=== PATIENT | female | born 1990 | race Caucasian/White ===

== ENCOUNTER 2016-11-26 20:33 | Emergency (ER) | payer MEDICAID ==
[2016-11-26] MEDS ORDERED: DIAZEPAM 5 MG TABLET PO ONE (22:17)
--- NOTE | 2016-11-26 22:19 | ER Document Report ---
HPI - HPI Patient complains to provider of: Panic attack Pain Level: Denies Context: Patient is a 26-year-old female that comes emergency department for chief complaint of possible panic attack, she is with mom, mom states that patient suddenly began hyperventilating, shaking, and tearful, she was complaining of sensation of nausea, dizziness, and difficulty breathing. Patient states this past but she cannot seem to calm down. Patient is tearful and shaky. Mom states she was previously medicated for this but not now. She does have a history of panic disorder, anxiety, PTSD. - CARDIOVASCULAR Cardiovascular: DENIES: Chest pain - REPRODUCTIVE LMP: this month Past Medical History - General Information source: Patient, Parent - Social History Smoking Status: Never Smoker Chew tobacco use (# tins/day): No Frequency of alcohol use: Occasional Drug Abuse: None Lives with: Family Family History: Reviewed & Not Pertinent Renal/ Medical History: Denies: Hx Peritoneal Dialysis Musculoskeltal Medical History: Reports Hx Arthritis Psychiatric Medical History: Reports: Hx Anxiety, Hx Post Traumatic Stress Disorder Past Surgical History: Reports: Hx Oral Surgery - wisdom, Hx Orthopedic Surgery - left ankle, Hx Tonsillectomy - Immunizations Hx Diphtheria, Pertussis, Tetanus Vaccination: Yes Vertical Provider Document - CONSTITUTIONAL General Appearance: WD/WN. negative: No Apparent Distress - Patient was shaky and tearful - INFECTION CONTROL TRAVEL OUTSIDE OF THE [place] IN LAST 30 DAYS: Yes - JIMMY - HEENT HEENT: Atraumatic, Normal ENT Exam - Tears but otherwise normal ENT exam, Normocephalic - NECK Neck: Normal Inspection - RESPIRATORY Respiratory: Breath Sounds Normal, No Respiratory Distress - CARDIOVASCULAR Cardiovascular: Regular Rate, Regular Rhythm. negative: Tachycardia - GI/ABDOMEN Gastrointestinal: Abdomen Soft, Abdomen Non-Tender - BACK Back: Normal Inspection - MUSCULOSKELETAL/EXTREMETIES Musculoskeletal/Extremeties: MAEW, FROM, Non-Tender - NEURO Level of Consciousness: Awake, Alert, Appropriate - DERM Integumentary: Warm, Dry, No Rash Course - Re-evaluation Re-evalutation: Patient initially shaky and tearful. Asymptomatic on recheck. Slightly flat affect, she states she wants to go home. Denies SI or HI. Mom states that she is currently living with her, states she recently went through divorce, states that she is seeing a therapist, neither 1 of them express any concerns about her safety at home, patient will be provided with a small amount of medication as needed for panic attack, discussed follow-up and return precautions, patient and mother state understanding and agreement. Discharge - Discharge Clinical Impression: Anxiety, Panic attack Condition: Stable Disposition: HOME, SELF-CARE Instructions: Anxiety ([facility]) Additional Instructions: Symptoms are most consistent with panic attack, if needed take the prescribed medication, follow-up with her therapist, follow-up with primary care as well, return to the emergency department for any concerning symptoms. Prescriptions: Diazepam [Valium 5 mg Tablet] 1 - 2 tab PO TID #10 tablet
[2016-11-26 23:48] VITALS: BP 114/64
== END 2016-11-26 23:50 | disposition home or self-care (01) ==
LOC: ER 20:33
DX: F41.0 Panic disorder [episodic paroxysmal anxiety] (principal); R11.0 Nausea; R42 Dizziness and giddiness; R06.02 Shortness of breath
CPT/HCPCS: 99283; J3490

== ENCOUNTER 2017-11-17 13:25 | Emergency (ER) | payer MEDICAID ==
--- NOTE | 2017-11-17 14:38 | ER Document Report ---
ED General - General TRAVEL OUTSIDE OF THE U.[place]. IN LAST 30 DAYS: Yes - JIMMY <HALEY ENGLAND - Last Filed: 11/17/17 14:32> <CYNTHIA BUTT - Last Filed: 11/17/17 15:45> - General Chief Complaint: Anxiety Stated Complaint: PSYCH EVAL Time Seen by Provider: 11/17/17 13:40 Notes: Patient is here for evaluation of anxiety and panic attacks. She says that she has had daily panic attacks for many years. Currently under the care of [facility]. She says that she has tried many different medications and none of them seem to work. Says she got anxious and upset today when she was going walking the mall. She has PTSD and has multiple episodes of anxiety and panic attacks triggered by multiple factors. Prominent symptom she has is hyperventilation, which she is doing somewhat mildly at this time. (CYNTHIA BUTT) - Related Data Allergies/Adverse Reactions: iodine Allergy (Verified 11/26/16 20:50) Past Medical History - Social History Smoking Status: Unknown if Ever Smoked Family History: Reviewed & Not Pertinent Patient has suicidal ideation: No Patient has homicidal ideation: No Renal/ Medical History: Denies: Hx Peritoneal Dialysis Musculoskeletal Medical History: Reports Hx Arthritis Psychiatric Medical History: Reports: Hx Anxiety, Hx Post Traumatic Stress Disorder Past Surgical History: Reports: Hx Oral Surgery - wisdom, Hx Orthopedic Surgery - left ankle, Hx Tonsillectomy - Immunizations Hx Diphtheria, Pertussis, Tetanus Vaccination: Yes <HALEY ENGLAND - Last Filed: 11/17/17 14:32> - Social History Smoking Status: Unknown if Ever Smoked Family History: Reviewed & Not Pertinent Pulmonary Medical History: Reports: Hx Asthma Neurological Medical History: Denies: Hx Seizures Endocrine Medical History: Denies: Hx Diabetes Mellitus Type 1, Hx Diabetes Mellitus Type 2 Psychiatric Medical History: Reports: Hx Anxiety, Hx Post Traumatic Stress Disorder Past Surgical History: Denies: Hx Abdominal Surgery <CYNTHIA BUTT - Last Filed: 11/17/17 15:45> Review of Systems <HALEY ENGLAND - Last Filed: 11/17/17 14:32> <CYNTHIA BUTT - Last Filed: 11/17/17 15:45> - Review of Systems Notes: REVIEW OF SYSTEMS: CONSTITUTIONAL : Denies fever. Breathing somewhat rapidly. EENT: Denies eye, ear, nose or mouth or throat pain or other symptoms. CARDIOVASCULAR: Has diffuse chest pains. RESPIRATORY: Feels short of breath. GASTROINTESTINAL: Mild diffuse discomfort, but denies abdominal pain or nausea, vomiting, or diarrhea. GENITOURINARY: Denies difficulty or painful urinating, urinary frequency, blood in urine. MUSCULOSKELETAL: Denies back or neck pain. Denies joint pain or swelling. SKIN: Denies rash or skin lesions. NEUROLOGICAL: Denies LOC or altered mental status. Denies headache. Denies sensory loss or motor deficits. ALL OTHER SYSTEMS REVIEWED AND NEGATIVE. (CYNTHIA BUTT) Physical Exam <HALEY ENGLAND - Last Filed: 11/17/17 14:32> - Vital signs Interpretation: Normal, Other - Respiratory rate about 25 at bedside by me. <CYNTHIA BUTT - Last Filed: 11/17/17 15:45> - Vital signs Notes: PHYSICAL EXAMINATION: GENERAL: Well-appearing, in no acute distress. Anxious and breathing somewhat rapidly at about 25/min. HEAD: Atraumatic, normocephalic. EYES: Pupils equal round and reactive to light, extraocular movements intact. ENT: oropharynx clear without exudates. Moist mucous membranes. NECK: Normal range of motion, supple. LUNGS: Breath sounds clear and equal bilaterally. HEART: Regular rate and rhythm without murmurs. ABDOMEN: Soft, nontender. No guarding or rebound. No masses. BACK: No tenderness throughout entire back. EXTREMITIES: Normal range of motion without pain. NEUROLOGICAL: Normal speech, normal gait. Normal sensory, motor, and reflex exams. Awake, alert, and oriented x3. Cranial nerves normal. PSYCH: Normal mood, normal affect. SKIN: Warm, dry, no rashes. (CYNTHIA BUTT) Course <HALEY ENGLAND - Last Filed: 11/17/17 14:32> - Laboratory Result Diagrams: 11/17/17 13:45 11/17/17 13:45 <CYNTHIA BUTT - Last Filed: 11/17/17 15:45> - Re-evaluation Re-evalutation: 11/17/17 15:43 Patient evaluated by [facility] who feels the patient can be discharged to be treated as an outpatient and follow-up with [facility]. Patient appears to be medically stable for transfer or discharge to [place]. Khoa Butt MD (CYNTHIA BUTT) - Laboratory Laboratory results interpreted by me: 11/17/17 11/17/17 13:45 13:45 RDW 14.1 H Salicylates < 1.0 L Acetaminophen < 10 L 11/17/17 15:43 All labs essentially normal. (CYNTHIA BUTT) Discharge <HALEY ENGLAND - Last Filed: 11/17/17 14:32> <CYNTHIA BUTT - Last Filed: 11/17/17 15:45> - Discharge Clinical Impression: Anxiety Condition: Stable Disposition: HOME, SELF-CARE Instructions: Anxiety ([facility]) Additional Instructions: You were seen in the ED and evaluated by the Medical and Behavioral Health teams for anxiety and determined to be appropriate for discharge at this time. You are encouraged to follow up with your outpatient provider, MARIO ALBERTO on November 22, 2017 at your appointment. Please advise them of this visit. Also discussed appropriate coping skills. Medication Recommendations per [facility]'s conracted psychiatrist Dr. Kamaljit FLOREZ are as follows Buspar 5mg twice daily Anxiety The physician feels that some of your health problems are being caused by anxiety. Anxiety affects your health in many ways. Anxiety alone can cause palpitations, sweats, chest pains, abdominal pains, shortness of breath, and headaches. It contributes to ulcer disease, high blood pressure, irritable bowel syndrome, and has been shown to cause flare-ups of many other diseases. Anxiety is not a simple disorder to treat. If the anxiety is due to recent life stresses, you may simply need time to "work through" the changes. If the anxiety is due to an underlying unhappiness with yourself or due to psychiatric disturbance, professional help will be needed. Your physician can refer you for further help if needed. Anti-anxiety medication is occasionally given if the stress is acute or if you are having trouble sleeping. Chronic or frequent use of these medications is not a good idea because the body becomes reliant on it, preventing you from dealing with life's normal stresses. Prescriptions: Buspirone HCl [Buspar 5 mg Tablet] 1 tab PO BID #12 tab
[2017-11-17 14:58] LABS: ABSOLUTE BASOPHILS # (AUTO) 0.1 10^3/uL (0.0-0.2); ABSOLUTE EOSINOPHILS # (AUTO) 0.3 10^3/uL (0.0-0.6); ABSOLUTE LYMPHOCYTES (AUTO) 2.4 10^3/uL (0.5-4.7); ABSOLUTE MONOCYTES (AUTO) 0.4 10^3/uL (0.1-1.4); BASOPHILS % (AUTO) 0.8 % (0-2); EOSINOPHILS % (AUTO) 3.4 % (0-6); HEMATOCRIT 41.3 % (36.0-47.0); HEMOGLOBIN 14.2 g/dL (12.0-15.5); LYMPHOCYTES % (AUTO) 26.4 % (13-45); MEAN CORPUSCULAR HEMOGLOBIN 28.6 pg (27.0-33.4); MEAN CORPUSCULAR HGB CONC 34.3 g/dL (32.0-36.0); MEAN CORPUSCULAR VOLUME 84 fl (80-97); PLATELET COUNT 309 10^3/uL (150-450); RED BLOOD COUNT 4.95 10^6/uL (3.72-5.28); RED CELL DISTRIBUTION WIDTH 14.1 % (11.5-14.0); SEGMENTED NEUTROPHILS % (AUTO) 65.4 % (42-78); TOTAL CELLS COUNTED % (AUTO) 100 %; WHITE BLOOD COUNT 9.1 10^3/uL (4.0-10.5)
[2017-11-17 15:29] LABS: ALANINE AMINOTRANSFERASE 35 U/L (9-52); ALBUMIN 3.8 g/dL (3.5-5.0); ALKALINE PHOSPHATASE 82 U/L (38-126); ANION GAP 7 (5-19); ASPARTATE AMINO TRANSFERASE 21 U/L (14-36); BILIRUBIN,DIRECT 0.4 mg/dL (0.0-0.4); BILIRUBIN,TOTAL 0.6 mg/dL (0.2-1.3); BLOOD UREA NITROGEN 8 mg/dL (7-20); CALCIUM 9.7 mg/dL (8.4-10.2); CARBON DIOXIDE 26 mmol/L (22-30); CHLORIDE 106 mmol/L (98-107); GLUCOSE 78 mg/dL (75-110); POTASSIUM 4.4 mmol/L (3.6-5.0); SODIUM 139.1 mmol/L (137-145); TOTAL PROTEIN 6.8 g/dL (6.3-8.2)
[2017-11-17 15:36] LABS: ACETAMINOPHEN < 10 ug/mL (10-30); ALCOHOL < 10 mg/dL (NONE DETECTED); SALICYLATE < 1.0 mg/dL (2.0-20.0)
--- NOTE | 2017-11-18 17:33 | PSYCHOLOGICAL NOTE ---
Psych Note - Psych Note Psych Note: Reason for consult: anxiety Consent for permissions: Stacy, patient's boyfriend at bedside, patient to room 44 in ED c/o anxiety attack while at [facility]. pt told EMS she does not like being around people, pt received Versed 5mg IM and Ativan 2mg IV. pt calm at this time. placed in secure room in front of nurses station. Patient states that she needed diapers and decided to go to [facility] around 1pm in the afternoon. Patient states that she and her boyfriend normally go late at night to avoid the crowds but that she was on the last diaper and needed to go now. So, as patient's boyfriend drove around the parking lot looking for a space to park, patient said that she could feel her chest tightening in anticipation of going into the crowded store. patient said that boyfriend offered for him to go in and she wait in the car with the kids but she declined and the whole family went in the store. Patient states that when she first walked in the store she decided to go into the frozen foods first because it did not look to be that busy. Then she could work her way around to the diapers. Patient disclosed that at this point she broke out into a cold sweat and had to sit down on a bench to avoid passing out. Associates at [facility] then called 911. Patient boyfriend states that he could tell that she was becoming anxious when he was looking for a parking space and that is why he offered to go in to get the diapers but patient declined. Boyfriend states that patient did make it in the store but almost passed out walking thru a couple of isles. Patient's boyfriend states that [facility] gave her a medication for her anxiety that she cannot take because of her asthma, however, patient had been taking it for the last 4 days but decided not to take it on the day that she went to [facility] because she felt like it had not been working to help with anxiety. Patient was awake and alert, but breathing heavily during the assessment. Mood was dysphoric. Patient was oriented to person, place, time and circumstance. Patient had a clear and organized thought process. Eye contact was well maintained. Conversational speech was limited due to the patient's heavy breathing. Intellectual abilities appear to be in the average range. Attention and concentration are good. Insight, judgment, impulse control are good. Medication recommendations per [facility]'s contracted psychiatrist Dr. Kamaljit FLOREZ are as follows Buspar 5mg twice daily Diagnosis 300.02 (F41.1) Generalized Anxiety Disorder per patient report Impression/Plan: Patient is cleared from acute psychiatric services. Patient was able to engage in forward thinking and problem solving in order to avoid social situations until she can get into to see her outpatient provider, [facility] on , 2017. Patient reports that she will be seeing a therapist and getting her medicine changed. Patient states that she will enlist the help of her boyfriend if she needs to get groceries or pampers. Patient denies suicide or homicide with no plans, means or intent. Dr. Kidd was consulted on the care and management of this patient; attending physician is in agreement with recommendations and disposition.
== END 2017-11-17 15:50 | disposition home or self-care (01) ==
LOC: ER 13:25
DX: F41.9 Anxiety disorder, unspecified (principal); J45.909 Unspecified asthma, uncomplicated
CPT/HCPCS: 36415; 80053; 80307; 84703; 85025; 99284

== ENCOUNTER 2017-12-05 21:59 | Emergency (ER) | payer MEDICAID, OTHER ==
[2017-12-05] MEDS ORDERED: LORAZEPAM INJ 2 MG/1 ML VIAL IV ONE (22:21)
--- NOTE | 2017-12-05 22:23 | ER Document Report ---
ED General - General Stated Complaint: ANXIETY Time Seen by Provider: 12/05/17 22:12 Mode of Arrival: Medic Information source: Patient, Emergency Med Personnel Notes: 27-year-old female brought to the emergency department by EMS for a panic attack. Patient was at [employer] practice when the episode began. Patient was given Versed 2.5 mg x2 dosages en route. In the emergency department, patient is hyperventilating and complaining of chest pain. Patient stating that she is having a panic attack. Patient has a history of panic attacks. She states that this is similar to previous. Patient is attending therapy once a week for her panic attacks. Patient does not want to be on medication for symptom control. TRAVEL OUTSIDE OF THE [place] IN LAST 30 DAYS: Yes - JIMMY - [facility] Onset: Just prior to arrival Onset/Duration: Sudden Quality of pain: Achy Associated symptoms: None Exacerbated by: Denies Relieved by: Denies Similar symptoms previously: Yes Recently seen / treated by doctor: No - Related Data Allergies/Adverse Reactions: iodine Allergy (Verified 11/26/16 20:50) Past Medical History - Social History Smoking Status: Unknown if Ever Smoked Family History: Reviewed & Not Pertinent Pulmonary Medical History: Reports: Hx Asthma Neurological Medical History: Denies: Hx Seizures Endocrine Medical History: Denies: Hx Diabetes Mellitus Type 1, Hx Diabetes Mellitus Type 2 Renal/ Medical History: Denies: Hx Peritoneal Dialysis Musculoskeletal Medical History: Reports Hx Arthritis Psychiatric Medical History: Reports: Hx Anxiety, Hx Post Traumatic Stress Disorder Past Surgical History: Reports: Hx Oral Surgery - wisdom, Hx Orthopedic Surgery - left ankle, Hx Tonsillectomy. Denies: Hx Abdominal Surgery - Immunizations Hx Diphtheria, Pertussis, Tetanus Vaccination: Yes Review of Systems - Review of Systems Constitutional: No symptoms reported EENT: No symptoms reported Cardiovascular: Chest pain, Palpitations Respiratory: Short of breath Gastrointestinal: No symptoms reported Genitourinary: No symptoms reported Musculoskeletal: No symptoms reported Skin: No symptoms reported Hematologic/Lymphatic: No symptoms reported Neurological/Psychological: No symptoms reported -: Yes All other systems reviewed and negative Physical Exam - General Notes: PHYSICAL EXAMINATION: GENERAL: Well-appearing, well-nourished and in no acute distress. HEAD: Atraumatic, normocephalic. EYES: Pupils equal round and reactive to light, extraocular movements intact, conjunctiva are normal. ENT: Nares patent, oropharynx clear without exudates. Moist mucous membranes. NECK: Normal range of motion, supple without lymphadenopathy LUNGS: Breath sounds clear to auscultation bilaterally and equal. No wheezes rales or rhonchi. Hyperventilating HEART: Regular rate and rhythm without murmurs ABDOMEN: Soft, nontender, nondistended abdomen. No guarding, no rebound. No masses appreciated. Female : deferred Musculoskeletal: Normal range of motion, no pitting or edema. No cyanosis. NEUROLOGICAL: Cranial nerves grossly intact. Normal speech, normal gait. Normal sensory, motor exams PSYCH: Normal mood, normal affect. SKIN: Warm, Dry, normal turgor, no rashes or lesions noted. Course - Re-evaluation Re-evalutation: 12/05/17 22:43 EKG: Ventricular rate 93, castration 78, QTc 438, normal sinus rhythm. 12/05/17 23:50 Patient wants to leave AMA. Patient understands the risks of leaving AGAINST MEDICAL ADVICE. She is medically competent to make decisions. Patient understands that she may or her condition may worsen by leaving AGAINST MEDICAL ADVICE. Patient denies suicidal or homicidal ideations. No hallucinations or delusions. Mom is at bedside. Mom states that the patient lives in her household. She will monitor the patient and return for worsening symptoms. - Laboratory Result Diagrams: 12/05/17 22:17 12/05/17 22:17 Laboratory results interpreted by me: 12/05/17 12/05/17 22:17 22:17 WBC 11.9 H Carbon Dioxide 20 L Discharge - Discharge Clinical Impression: Anxiety Condition: Stable Disposition: AGAINST MEDICAL ADVICE Referrals: MILAN TURPIN MD [Primary Care Provider] - Follow up as needed
[2017-12-05 22:41] LABS: ABSOLUTE BASOPHILS # (AUTO) 0.1 10^3/uL (0.0-0.2); ABSOLUTE EOSINOPHILS # (AUTO) 0.4 10^3/uL (0.0-0.6); ABSOLUTE LYMPHOCYTES (AUTO) 3.8 10^3/uL (0.5-4.7); ABSOLUTE MONOCYTES (AUTO) 0.5 10^3/uL (0.1-1.4); ABSOLUTE NEUT (AUTO) 7.1 10^3/uL (1.7-8.2); BASOPHILS % (AUTO) 0.4 % (0-2); EOSINOPHILS % (AUTO) 3.7 % (0-6); HEMATOCRIT 40.1 % (36.0-47.0); HEMOGLOBIN 13.8 g/dL (12.0-15.5); LYMPHOCYTES % (AUTO) 31.6 % (13-45); MEAN CORPUSCULAR HEMOGLOBIN 28.7 pg (27.0-33.4); MEAN CORPUSCULAR HGB CONC 34.5 g/dL (32.0-36.0); MEAN CORPUSCULAR VOLUME 83 fl (80-97); MONOCYTES % (AUTO) 4.4 % (3-13); PLATELET COUNT 311 10^3/uL (150-450); RED BLOOD COUNT 4.82 10^6/uL (3.72-5.28); RED CELL DISTRIBUTION WIDTH 13.7 % (11.5-14.0); SEGMENTED NEUTROPHILS % (AUTO) 59.9 % (42-78); TOTAL CELLS COUNTED % (AUTO) 100 %; WHITE BLOOD COUNT 11.9 10^3/uL (4.0-10.5)
[2017-12-05 23:02] LABS: ALANINE AMINOTRANSFERASE 29 U/L (9-52); ALBUMIN 4.1 g/dL (3.5-5.0); ALKALINE PHOSPHATASE 76 U/L (38-126); ANION GAP 14 (5-19); ASPARTATE AMINO TRANSFERASE 22 U/L (14-36); BILIRUBIN,DIRECT 0.2 mg/dL (0.0-0.4); BILIRUBIN,TOTAL 0.7 mg/dL (0.2-1.3); BLOOD UREA NITROGEN 9 mg/dL (7-20); CALCIUM 9.5 mg/dL (8.4-10.2); CARBON DIOXIDE 20 mmol/L (22-30); CHLORIDE 106 mmol/L (98-107); GLUCOSE 96 mg/dL (75-110); POTASSIUM 4.5 mmol/L (3.6-5.0); SODIUM 140.1 mmol/L (137-145); TOTAL PROTEIN 7.1 g/dL (6.3-8.2)
--- NOTE | 2017-12-05 23:15 | RADIOLOGY REPORT (SQ) ---
EXAM DESCRIPTION: XR CHEST 1 VIEW COMPLETED DATE/TME: 12/05/2017 22:21 CLINICAL HISTORY: 27 years Female, chest pain COMPARISON: None. NUMBER OF VIEWS/TECHNIQUE: 1/AP FINDINGS: Adequate lung volume, clear parenchyma, normal cardiac silhouette, and intact bony thorax. IMPRESSION: No acute cardiopulmonary findings.
--- NOTE | 2017-12-08 14:12 | EKG REPORT ---
SEVERITY:- ABNORMAL ECG - SINUS RHTHM WITH SINUS ARRHYTHMIA, CAN NOT R/O SLOW A FLUTTER, REC REPEAT EKG : Confirmed by: Marina Guzman 08-Dec-2017 14:11:41
== END 2017-12-05 23:59 | disposition left against medical advice (07) ==
LOC: ER 21:59
DX: F41.9 Anxiety disorder, unspecified (principal); R07.9 Chest pain, unspecified; R06.4 Hyperventilation; Z79.899 Other long term (current) drug therapy; J45.909 Unspecified asthma, uncomplicated
CPT/HCPCS: 93005; 99284; 96374; 36415; 85025; 80053; 84484; 71045; 93010; J2060

== ENCOUNTER 2018-04-26 23:51 | Emergency (ER) | payer MEDICAID, OTHER ==
--- NOTE | 2018-04-26 23:53 | ER Document Report ---
ED Medical Screen (RME) - General Stated Complaint: ABDOMINAL PAIN Time Seen by Provider: 04/26/18 23:52 Primary Care Provider: MILAN TURPIN MD [Primary Care Provider] - Follow up as needed Mode of Arrival: Ambulatory Information source: Patient Notes: PT PRESENTS WITH C/O CONTRACTIONS FOR THE LAST TWO HOURS, 16 WEEKS , RANDOM CONTRACTIONS, C/O CRAMPING, NO VAG BLEEDING, HAD CULPOSCOPY A FEW DAYS AGO. I have greeted and performed a rapid initial assessment of this patient. A comprehensive ED assessment and evaluation of the patient, analysis of test results and completion of the medical decision making process will be conducted by additional ED providers. TRAVEL OUTSIDE OF THE [place] IN LAST 30 DAYS: Yes - JIMMY - Related Data Allergies/Adverse Reactions: iodine Allergy (Verified 11/26/16 20:50) Past Medical History Pulmonary Medical History: Reports: Hx Asthma Neurological Medical History: Denies: Hx Seizures Endocrine Medical History: Denies: Hx Diabetes Mellitus Type 1, Hx Diabetes Mellitus Type 2 Renal/ Medical History: Denies: Hx Peritoneal Dialysis Musculoskeltal Medical History: Reports Hx Arthritis Psychiatric Medical History: Reports: Hx Anxiety, Hx Post Traumatic Stress Disorder Past Surgical History: Reports: Hx Oral Surgery - wisdom, Hx Orthopedic Surgery - left ankle, Hx Tonsillectomy. Denies: Hx Abdominal Surgery - Immunizations Hx Diphtheria, Pertussis, Tetanus Vaccination: Yes History of Influenza Vaccine for 11/2016 - 04/2017 Season: No Physical Exam - Vital signs Vitals: Temp Pulse Resp BP Pulse Ox 98.1 F 97 16 120/75 99 04/27/18 00:04 04/27/18 00:04 04/27/18 00:04 04/27/18 00:04 04/27/18 00:04 Course - Vital Signs Vital signs: Temp Pulse Resp BP Pulse Ox 98.1 F 97 16 120/75 99 04/27/18 00:04 04/27/18 00:04 04/27/18 00:04 04/27/18 00:04 04/27/18 00:04 - Laboratory Result Diagrams: 04/27/18 00:20 04/27/18 00:20 Laboratory results interpreted by me: 04/27/18 04/27/18 00:20 00:20 WBC 11.5 H RDW 14.6 H BUN 6 L Doctor's Discharge - Discharge Referrals: MILAN TURPIN MD [Primary Care Provider] - Follow up as needed
[2018-04-27 00:09] VITALS: BP 120/75
[2018-04-27 01:12] LABS: ABSOLUTE EOSINOPHILS # (AUTO) 0.5 10^3/uL (0.0-0.6); ABSOLUTE LYMPHOCYTES (AUTO) 3.4 10^3/uL (0.5-4.7); ABSOLUTE MONOCYTES (AUTO) 0.6 10^3/uL (0.1-1.4); ABSOLUTE NEUT (AUTO) 7.1 10^3/uL (1.7-8.2); BASOPHILS % (AUTO) 0.1 % (0-2); EOSINOPHILS % (AUTO) 3.9 % (0-6); HEMATOCRIT 36.7 % (36.0-47.0); LYMPHOCYTES % (AUTO) 29.2 % (13-45); MEAN CORPUSCULAR HEMOGLOBIN 30.1 pg (27.0-33.4); MEAN CORPUSCULAR HGB CONC 35.4 g/dL (32.0-36.0); MEAN CORPUSCULAR VOLUME 85 fl (80-97); MONOCYTES % (AUTO) 4.9 % (3-13); PLATELET COUNT 244 10^3/uL (150-450); RED BLOOD COUNT 4.31 10^6/uL (3.72-5.28); RED CELL DISTRIBUTION WIDTH 14.6 % (11.5-14.0); SEGMENTED NEUTROPHILS % (AUTO) 61.9 % (42-78); TOTAL CELLS COUNTED % (AUTO) 100 %; WHITE BLOOD COUNT 11.5 10^3/uL (4.0-10.5)
--- NOTE | 2018-04-27 01:24 | RADIOLOGY REPORT (SQ) ---
EXAM DESCRIPTION: US LIMITED COMPLETED DATE/TME: 04/27/2018 00:05 CLINICAL HISTORY: 27 years, Female, CONTRACTIONS 16 WEEKS COMPARISON:None. TECHNIQUE: Grayscale and Doppler sonogram of the pelvis. Transbadominal technique was performed. FINDINGS: The uterus contains a single fetus with estimated gestational age of 15 weeks four days by current ultrasound. Estimated date of delivery is October 15, 2018. cardiac activity is measured at 158 bpm. The cervix measures 3.4 cm in length and is closed. There is no funneling. The placenta is located posteriorly and is unremarkable in appearance. IMPRESSION: Single live intrauterine .
[2018-04-27 01:34] LABS: ALANINE AMINOTRANSFERASE 29 U/L (9-52); ALBUMIN 3.8 g/dL (3.5-5.0); ALKALINE PHOSPHATASE 66 U/L (38-126); ANION GAP 11 (5-19); ASPARTATE AMINO TRANSFERASE 17 U/L (14-36); BILIRUBIN,DIRECT 0.1 mg/dL (0.0-0.4); BILIRUBIN,TOTAL 0.4 mg/dL (0.2-1.3); BLOOD UREA NITROGEN 6 mg/dL (7-20); CALCIUM 9.3 mg/dL (8.4-10.2); CARBON DIOXIDE 22 mmol/L (22-30); CHLORIDE 104 mmol/L (98-107); GLUCOSE 85 mg/dL (75-110); POTASSIUM 3.9 mmol/L (3.6-5.0); SODIUM 137.4 mmol/L (137-145); TOTAL PROTEIN 6.4 g/dL (6.3-8.2)
[2018-04-27 03:56] LABS: APPEARANCE,URINE CLEAR; BILIRUBIN,URINE NEGATIVE (NEGATIVE); COLOR,URINE YELLOW; GLUCOSE, URINE 50 mg/dL (NEGATIVE); KETONES,URINE NEGATIVE (NEGATIVE); LEUKOCYTE ESTERASE,URINE TRACE (NEGATIVE); NITRITE,URINE NEGATIVE (NEGATIVE); PROTEIN,URINE NEGATIVE (NEGATIVE); UROBILINOGEN,URINE NEGATIVE mg/dL (<2.0)
--- NOTE | 2018-04-27 04:12 | ER Document Report ---
ED General - General Chief Complaint: OB Problem (<20wks) Stated Complaint: ABDOMINAL PAIN Time Seen by Provider: 04/26/18 23:52 Primary Care Provider: MILAN TURPIN MD [Primary Care Provider] - Follow up as needed Mode of Arrival: Ambulatory Notes: Patient is a 27-year-old female who presents emergency department with a chief complaint of contractions. She states that her instructions feel more than what [place] contractions feel like. She started having contractions today and was told by her GRANTS ASSISTANT from [place] to go to the emergency department if she continues to have contractions. She had a colposcopy on Sunday. She denies any fever, dysuria, vaginal bleeding, or any other symptoms. TRAVEL OUTSIDE OF THE [place] IN LAST 30 DAYS: Yes - JIMMY - Related Data Allergies/Adverse Reactions: iodine Allergy (Verified 11/26/16 20:50) Past Medical History - General Information source: Patient - Social History Smoking Status: Never Smoker Family History: Reviewed & Not Pertinent Pulmonary Medical History: Reports: Hx Asthma Neurological Medical History: Denies: Hx Seizures Endocrine Medical History: Denies: Hx Diabetes Mellitus Type 1, Hx Diabetes Mellitus Type 2 Renal/ Medical History: Denies: Hx Peritoneal Dialysis Musculoskeletal Medical History: Reports Hx Arthritis Psychiatric Medical History: Reports: Hx Anxiety, Hx Post Traumatic Stress Disorder Past Surgical History: Reports: Hx Oral Surgery - wisdom, Hx Orthopedic Surgery - left ankle, Hx Tonsillectomy. Denies: Hx Abdominal Surgery - Immunizations Hx Diphtheria, Pertussis, Tetanus Vaccination: Yes Review of Systems - Review of Systems Notes: REVIEW OF SYSTEMS: CONSTITUTIONAL : Denies recent illness. Denies recent unintentional weight loss. Denies fever, chills, or sweats. EENT: Denies eye, ear, throat, or mouth pain, discharge, or symptoms. Denies nasal or sinus congestion. CARDIOVASCULAR: Denies chest pain. RESPIRATORY: Denies shortness of breath, cough, congestion, difficulty breathin g, or wheezing. GASTROINTESTINAL: Denies nausea, vomiting, and diarrhea. Denies abdominal pain. Denies constipation. Last BM: GENITOURINARY: Denies difficulty urinating, burning, blood in urine, urgency or frequency. FEMALE GENITOURINARY: See HPI. MUSCULOSKELETAL: Denies neck and back pain. Denies joint pain or swelling. SKIN: Denies rash, itchiness, or lesions HEMATOLOGIC : Denies easy bruising or bleeding. LYMPHATIC: Denies swollen, painful, enlarged glands. NEUROLOGICAL: Denies no numbness or tingling denies weakness. Denies headache. Denies altered mental status. Denies alteration in speech. PSYCHIATRIC: Denies stress, anxiety, alteration in sleep patterns, or depressio n. All other systems reviewed and negative. Physical Exam - Vital signs Vitals: Temp Pulse Resp BP Pulse Ox 98.1 F 97 16 120/75 99 04/27/18 00:04 04/27/18 00:04 04/27/18 00:04 04/27/18 00:04 04/27/18 00:04 - Notes Notes: PHYSICAL EXAMINATION: GENERAL: Appears well, healthy, well-nourished, no acute distress. HEAD: Normocephalic, atraumatic. EYES: PERRL, conjunctiva normal, all extraocular movements intact, sclera nonicteric ENT: Moist mucous membranes. NECK: Supple, no noticeable swelling, redness, rash. Normal range of motion. LUNGS: Equal breath sounds bilaterally and clear to auscultation. No wheezes rales or rhonchi. CARDIOVASCULAR: S1-S2, regular rate, regular rhythm. Radial pulses 2+, normal. ABDOMEN: Normoactive bowel sounds. Soft, mildly tender, no guarding, no rebound tenderness, and no masses palpated. EXTREMITIES: Normal strength and range of motion, no pitting or edema. No cyanosis. NEUROLOGICAL: Moves all extremities upon command. Strength 5/5 in all extremities. PSYCH: Normal mood, normal affect. SKIN: Warm, dry. No rash, lesions, ulcerations noted. Normal skin turgor. Course - Re-evaluation Re-evalutation: 04/27/18 Patient's hematology is unremarkable. Her chemistries are normal. And her urine has trace leukocytes in it but she denies any dysuria. She does have some glucose in her urine, but her blood sugar on labs is 85. Patient does have a patient does have a 15-week, 4-day intrauterine and there is a heartbeat. Her cervix is closed. No significant findings on ultrasound. I contacted Dr. Roy, the SHEARING SHED WORKER electric motor controls assembler and he states that there is nothing we can do for her at this time. He states that she needs to follow-up with her SHEARING SHED WORKER on Sunday. I have discussed this with the patient. She is in agreement with this plan. Verbal discharge instructions were given to the patient. They verbalized understanding. They are stable for discharge. - Vital Signs Vital signs: Temp Pulse Resp BP Pulse Ox 98.1 F 97 16 120/75 99 04/27/18 00:04 04/27/18 00:04 04/27/18 00:04 04/27/18 00:04 04/27/18 00:04 - Laboratory Result Diagrams: 04/27/18 00:20 04/27/18 00:20 Laboratory results interpreted by me: 04/27/18 04/27/18 04/27/18 00:20 00:20 03:20 WBC 11.5 H RDW 14.6 H BUN 6 L Urine Glucose (UA) 50 H Ur Leukocyte Esterase TRACE H Discharge - Discharge Clinical Impression: Uterine contractions during Qualifiers: Weeks of gestation: 15 weeks Qualified Code(s): Z3A.15 - 15 weeks gestation of Condition: Stable Disposition: HOME, SELF-CARE Additional Instructions: You were seen today in the emergency department for contractions. Your ultrasound is normal. Your labs are normal. The OB doctor states that you need to follow-up with your SHEARING SHED WORKER on Sunday or Sunday. You can take Tylenol 650 mg every 6 hours as needed for your pain. If you have worsening symptoms, vaginal bleeding, or any symptoms that are worrisome to you, please return to the emergency apartment. Referrals: MILAN TURPIN MD [Primary Care Provider] - Follow up as needed
== END 2018-04-27 04:28 | disposition home or self-care (01) ==
LOC: ER 23:51
DX: O60.02 Preterm labor without delivery, second trimester (principal); O26.892 Other specified pregnancy related conditions, second trimester; R10.9 Unspecified abdominal pain; O99.512 Diseases of the respiratory system complicating pregnancy, second trimester; Z3A.15 15 weeks gestation of pregnancy; Z98.890 Other specified postprocedural states
CPT/HCPCS: 36415; 76815; 80053; 81001; 85025; 99284

== ENCOUNTER 2018-05-23 21:40 | Outpatient (CLI) | payer MEDICAID ==
[2018-05-23 22:47] LABS: AMORPHOUS SEDIMENT,URINE TRACE /HPF; APPEARANCE,URINE SLIGHTLY-CLOUDY; BILIRUBIN,URINE NEGATIVE (NEGATIVE); CALCIUM OXALATE CRYSTALS,URINE FEW /HPF; COLOR,URINE YELLOW; GLUCOSE, URINE >=500 mg/dL (NEGATIVE); KETONES,URINE NEGATIVE (NEGATIVE); LEUKOCYTE ESTERASE,URINE TRACE (NEGATIVE); NITRITE,URINE NEGATIVE (NEGATIVE); PROTEIN,URINE NEGATIVE (NEGATIVE); URINE SPECIFIC GRAVITY 1.024
[2018-05-23 23:06] LABS: URINE AMPHETAMINES SCREEN NEGATIVE; URINE BARBITURATES SCREEN NEGATIVE; URINE BENZODIAZEPINES SCREEN NEGATIVE; URINE COCAINE SCREEN NEGATIVE; URINE MARIJUANA (THC) SCREEN NEGATIVE; URINE METHADONE SCREEN NEGATIVE; URINE PHENCYCLIDINE SCREEN NEGATIVE
== END 2018-05-23 23:41 | disposition home or self-care (01) ==
LOC: LC 21:40
PROVIDERS: ATTEND Obstetrics & Gynecology
PROC: 4A1HXCZ Monitoring of Products of Conception, Cardiac Rate, External Approach (ICD-10-PCS; principal; 2018-05-23)
DX: O36.8120 Decreased fetal movements, second trimester, not applicable or unspecified (principal); Z3A.20 20 weeks gestation of pregnancy
CPT/HCPCS: 80307; 81001

== ENCOUNTER 2018-07-19 15:01 | Emergency (ER) | payer MEDICAID ==
[2018-07-19] MEDS ORDERED: METOCLOPRAMIDE HCL INJ/PF 10 MG/2 ML SDV IV ONE (15:24)
[2018-07-19] MEDS ORDERED: NORMAL SALINE 1000 ML 1,000 ML IV ONE (15:24)
--- NOTE | 2018-07-19 15:28 | ER Document Report ---
ED Medical Screen (RME) - General Chief Complaint: Nausea/Vomiting Stated Complaint: COUGH Time Seen by Provider: 07/19/18 15:24 Primary Care Provider: MILAN TURPIN MD [Primary Care Provider] - Follow up as needed Notes: Patient is a 27-year-old female currently 27 weeks presents to the emergency department for posttussive vomiting for the last week. States she has been unable to keep fluids down because she coughs so much and then inevitably starts vomiting. Patient's denying any nausea, abdominal pain, vaginal bleeding or discharge. States she does have a history of asthma but has not taken her at-home albuterol treatments for same. Patient's denying any fevers. GENERAL: Alert, interacts well. No acute distress. LUNGS: Clear to auscultation bilaterally, no discernible wheezes, rales, or rhonchi. No respiratory distress. I have greeted and performed a rapid initial assessment of this patient. A comprehensive ED assessment and evaluation of the patient, analysis of test results and completion of the medical decision making process will be conducted by additional ED providers. This medical record was dictated with voice recognizing software. There may be grammatical, syntax errors that are unintended. TRAVEL OUTSIDE OF THE [place] IN LAST 30 DAYS: No - Related Data Allergies/Adverse Reactions: iodine Allergy (Verified 07/19/18 15:02) Past Medical History Pulmonary Medical History: Reports: Hx Asthma Neurological Medical History: Denies: Hx Seizures Endocrine Medical History: Denies: Hx Diabetes Mellitus Type 1, Hx Diabetes Mellitus Type 2 Renal/ Medical History: Denies: Hx Peritoneal Dialysis Musculoskeltal Medical History: Reports Hx Arthritis Psychiatric Medical History: Reports: Hx Anxiety, Hx Post Traumatic Stress Disorder Past Surgical History: Reports: Hx Oral Surgery - wisdom, Hx Orthopedic Surgery - left ankle, Hx Tonsillectomy. Denies: Hx Abdominal Surgery - Immunizations Hx Diphtheria, Pertussis, Tetanus Vaccination: Yes History of Influenza Vaccine for 11/2016 - 04/2017 Season: No Physical Exam - Vital signs Vitals: Temp Pulse Resp BP Pulse Ox 97.8 F 92 18 147/67 H 99 07/19/18 15:07 07/19/18 15:07 07/19/18 15:07 07/19/18 15:07 07/19/18 15:07 Course - Vital Signs Vital signs: Temp Pulse Resp BP Pulse Ox 97.8 F 92 18 147/67 H 99 07/19/18 15:07 07/19/18 15:07 07/19/18 15:07 07/19/18 15:07 07/19/18 15:07 Doctor's Discharge - Discharge Referrals: MILAN TURPIN MD [Primary Care Provider] - Follow up as needed
[2018-07-19 15:54] LABS: ABSOLUTE EOSINOPHILS # (AUTO) 0.3 10^3/uL (0.0-0.6); ABSOLUTE LYMPHOCYTES (AUTO) 2.4 10^3/uL (0.5-4.7); ABSOLUTE MONOCYTES (AUTO) 0.4 10^3/uL (0.1-1.4); ABSOLUTE NEUT (AUTO) 9.1 10^3/uL (1.7-8.2); BASOPHILS % (AUTO) 0.4 % (0-2); EOSINOPHILS % (AUTO) 2.7 % (0-6); HEMATOCRIT 39.6 % (36.0-47.0); HEMOGLOBIN 13.8 g/dL (12.0-15.5); LYMPHOCYTES % (AUTO) 19.4 % (13-45); MEAN CORPUSCULAR HEMOGLOBIN 30.3 pg (27.0-33.4); MEAN CORPUSCULAR HGB CONC 34.8 g/dL (32.0-36.0); MEAN CORPUSCULAR VOLUME 87 fl (80-97); MONOCYTES % (AUTO) 3.3 % (3-13); PLATELET COUNT 246 10^3/uL (150-450); RED BLOOD COUNT 4.55 10^6/uL (3.72-5.28); RED CELL DISTRIBUTION WIDTH 13.8 % (11.5-14.0); SEGMENTED NEUTROPHILS % (AUTO) 74.2 % (42-78); TOTAL CELLS COUNTED % (AUTO) 100 %; WHITE BLOOD COUNT 12.2 10^3/uL (4.0-10.5)
--- NOTE | 2018-07-19 16:00 | RADIOLOGY REPORT (SQ) ---
EXAM DESCRIPTION: CHEST SINGLE VIEW COMPLETED DATE/TIME: 07/19/2018 3:53 pm REASON FOR STUDY: SOB COMPARISON: 12/05/2017 EXAM PARAMETERS: NUMBER OF VIEWS: One view. TECHNIQUE: Single frontal radiographic view of the chest acquired. RADIATION DOSE: NA LIMITATIONS: None. FINDINGS: LUNGS AND PLEURA: No opacities, masses or pneumothorax. No pleural effusion. MEDIASTINUM AND HILAR STRUCTURES: No masses. Contour normal. HEART AND VASCULAR STRUCTURES: Heart normal in size. Normal vasculature. BONES: No acute findings. HARDWARE: None in the chest. OTHER: No other significant finding. IMPRESSION: NO ACUTE RADIOGRAPHIC FINDING IN THE CHEST. TECHNICAL DOCUMENTATION: JOB ID: [id number] [employer]- All Rights Reserved Reading location - IP/workstation name: [email or web address]
[2018-07-19 16:11] LABS: ALANINE AMINOTRANSFERASE 13 U/L (9-52); ALBUMIN 3.8 g/dL (3.5-5.0); ALKALINE PHOSPHATASE 108 U/L (38-126); ANION GAP 10 (5-19); ASPARTATE AMINO TRANSFERASE 12 U/L (14-36); BILIRUBIN,DIRECT 0.3 mg/dL (0.0-0.4); BILIRUBIN,TOTAL 0.7 mg/dL (0.2-1.3); BLOOD UREA NITROGEN 7 mg/dL (7-20); CALCIUM 9.6 mg/dL (8.4-10.2); CARBON DIOXIDE 23 mmol/L (22-30); CHLORIDE 106 mmol/L (98-107); GLUCOSE 72 mg/dL (75-110); POTASSIUM 4.2 mmol/L (3.6-5.0); SODIUM 138.9 mmol/L (137-145); TOTAL PROTEIN 6.9 g/dL (6.3-8.2)
--- NOTE | 2018-07-19 16:34 | ER Document Report ---
ED General - General Chief Complaint: Nausea/Vomiting Stated Complaint: COUGH Time Seen by Provider: 07/19/18 15:24 Primary Care Provider: MILAN TURPIN MD [Primary Care Provider] - Follow up as needed Mode of Arrival: Ambulatory Information source: Patient TRAVEL OUTSIDE OF THE [place] IN LAST 30 DAYS: No - HPI Patient complains to provider of: Vomiting and secondary to persistent cough Onset: Other - Last couple of weeks Onset/Duration: Constant, Persistent Severity: Mild Pain Level: 1 Associated symptoms: Nausea, Vomiting. denies: Chills, Fever Exacerbated by: Denies Similar symptoms previously: No Recently seen / treated by doctor: No Notes: 27-year-old female coming in today with persistent cough that leads to intractable vomiting. According to patient she is losing weight. She is 27 weeks gestation. OB wanted her to come here and get worked up and get fluids. - Related Data Allergies/Adverse Reactions: iodine Allergy (Verified 07/19/18 15:02) Past Medical History - General Information source: Patient - Social History Smoking Status: Never Smoker Chew tobacco use (# tins/day): No Frequency of alcohol use: None Drug Abuse: None Family History: Reviewed & Not Pertinent Patient has suicidal ideation: No Patient has homicidal ideation: No Pulmonary Medical History: Reports: Hx Asthma Neurological Medical History: Denies: Hx Seizures Endocrine Medical History: Denies: Hx Diabetes Mellitus Type 1, Hx Diabetes Mellitus Type 2 Renal/ Medical History: Denies: Hx Peritoneal Dialysis Musculoskeletal Medical History: Reports Hx Arthritis Psychiatric Medical History: Reports: Hx Anxiety, Hx Post Traumatic Stress Disorder Past Surgical History: Reports: Hx Oral Surgery - wisdom, Hx Orthopedic Surgery - left ankle, Hx Tonsillectomy. Denies: Hx Abdominal Surgery - Immunizations Hx Diphtheria, Pertussis, Tetanus Vaccination: Yes Review of Systems - Review of Systems Notes: Constitutional: No fevers. No chills. EENT: No eye redness. No eye pain. No ear pain. No sore throat. Cardiovascular: No chest pain. No palpitations. Respiratory: No cough. No shortness of breath. No respiratory distress. Gastrointestinal: No abdominal pain. Positive for nausea and vomiting. Negative for diarrhea Genitourinary: Positive for pelvic cramping. Negative for vaginal bleeding Musculoskeletal: Atraumatic. No swelling. No deformities. Skin: No rash or lesions. Lymphatic: No swollen lymph nodes. Neurologic: No headache. No syncope. Psychiatric: No suicidal or homicidal ideation. Physical Exam - Vital signs Vitals: Temp Pulse Resp BP Pulse Ox 97.8 F 92 18 147/67 H 99 07/19/18 15:07 07/19/18 15:07 07/19/18 15:07/19/18 15:07/19/18 15:07 - Notes Notes: General: Well-developed, well-nourished. In no acute distress. Non-toxic appearing. Cardiac: Well-perfused. Regular rate and rhythm. No murmurs, rubs, or gallops. Pulmonary: No respiratory distress. No cyanosis. Bilateral lung fiels are clear to auscultation. Abdominal: Non-distended. Non-rigid. Bowels sounds are present in all four quadrants. No guarding or rebound. HEENT: Head is atraumatic. Conjunctivae not reddened. No tearing. PERRL. EOMI. Orbits atraumatic. No periorbital swelling or erythema. Oropharynx is without erythema, swelling, or exudates. Neck: Supple. No adenopathy. No meningismus. Dermatologic: Warm with good turgor. No rash. Atraumatic. Chest: Atraumatic. No chest wall tenderness to palpation. Musculoskeletal: Moves all extremities well. No range of motion deficits. no muscular or joint tenderness. No paraspinal muscle tenderness. no midline spinal tenderness or step-off. Genitourinary: Examination deferred Neurologic: No gross neurologic deficits. Psychiatric: Normal mood. Course - Re-evaluation Re-evalutation: 07/19/18 16:32 Patient's labs look reassuring. We will need to treat her cough aggressively. She is not suffering from nausea so I do not think nausea medicine will be of any help. Patient has a placental abnormality puts her at a slightly higher risk. We will go ahead and get an ultrasound to look at this a little more closely make sure that the amniotic fluid levels are appropriate. 07/19/18 18:34 Ultrasound reassuring. Patient not coughing or vomiting here. Will discharge home Promethazine DM syrup. - Vital Signs Vital signs: Temp Pulse Resp BP Pulse Ox 97.8 F 92 18 147/67 H 99 07/19/18 15:07 07/19/18 15:07 07/19/18 15:07 07/19/18 15:07 07/19/18 15:07 - Laboratory Result Diagrams: 07/19/18 15:43 07/19/18 15:43 Laboratory results interpreted by me: 07/19/18 07/19/18 07/19/18 15:43 15:43 16:33 WBC 12.2 H Absolute Neutrophils 9.1 H Glucose 72 L AST 12 L Urine Protein 30 H Urine Ketones 20 H Urine Urobilinogen 2.0 H Discharge - Discharge Clinical Impression: Nonproductive cough, Post-tussive emesis Condition: Good Disposition: HOME, SELF-CARE Instructions: Vomiting ([facility]), Intravenous (IV) Fluids ([facility]) Prescriptions: D-Methorphan Hb/Prometh HCl [Promethazine-Dm Syrup] 5 ml PO Q6HP PRN #120 ml PRN Reason: Referrals: MILAN TURPIN MD [Primary Care Provider] - Follow up as needed
[2018-07-19 17:26] LABS: APPEARANCE,URINE TURBID; BILIRUBIN,URINE NEGATIVE (NEGATIVE); COLOR,URINE YELLOW; GLUCOSE, URINE NEGATIVE (NEGATIVE); KETONES,URINE 20 mg/dL (NEGATIVE); LEUKOCYTE ESTERASE,URINE NEGATIVE (NEGATIVE); NITRITE,URINE NEGATIVE (NEGATIVE); PROTEIN,URINE 30 mg/dL (NEGATIVE); URINE SPECIFIC GRAVITY 1.028
--- NOTE | 2018-07-19 18:21 | RADIOLOGY REPORT (SQ) ---
EXAM DESCRIPTION: U/S OB LIMITED COMPLETED DATE/TIME: 07/19/2018 6:05 pm REASON FOR STUDY: vomiting, weight loss, 27 wks gest COMPARISON: 04/26/2018 TECHNIQUE: Limited transabdominal grayscale ultrasound for evaluation of specific requested obstetri donya parameters. LIMITATIONS: None. FINDINGS: CERVICAL LENGTH: Not measured. Closed. ASA: Not measured. Adequate. Cm. FHR: 157 beats per minute. PRESENTATION: Cephalic. PLACENTA: Fundal. ANATOMY: Not assessed OTHER: No other significant findings. IMPRESSION: LIMITED OBSTETRICAL ULTRASOUND WITH MEASURED PARAMETERS DELINEATED ABOVE. Trimester of : Third trimester - 28 weeks to delivery. TECHNICAL DOCUMENTATION: JOB ID: [id number] [employer]- All Rights Reserved Reading location - IP/workstation name: [email or web address]
[2018-07-19 19:02] VITALS: BP 119/70
== END 2018-07-19 19:06 | disposition home or self-care (01) ==
LOC: ER 15:01
DX: O26.892 Other specified pregnancy related conditions, second trimester (principal); R05 Cough; R63.4 Abnormal weight loss; R10.2 Pelvic and perineal pain; O21.2 Late vomiting of pregnancy; O99.512 Diseases of the respiratory system complicating pregnancy, second trimester; J45.909 Unspecified asthma, uncomplicated; Z3A.27 27 weeks gestation of pregnancy
CPT/HCPCS: 99284; 96360; 36415; 85025; 80053; 81001; 71045; 76815; J7030

== ENCOUNTER 2018-08-27 12:10 | Outpatient (CLI) | payer MEDICAID ==
[2018-08-27 13:22] LABS: APPEARANCE,URINE SLIGHTLY-CLOUDY; BILIRUBIN,URINE NEGATIVE (NEGATIVE); COLOR,URINE YELLOW; GLUCOSE, URINE >=500 mg/dL (NEGATIVE); KETONES,URINE NEGATIVE (NEGATIVE); LEUKOCYTE ESTERASE,URINE SMALL (NEGATIVE); NITRITE,URINE NEGATIVE (NEGATIVE); PROTEIN,URINE NEGATIVE (NEGATIVE); URINE SPECIFIC GRAVITY 1.012; UROBILINOGEN,URINE NEGATIVE mg/dL (<2.0)
[2018-08-27 13:37] LABS: URINE AMPHETAMINES SCREEN NEGATIVE; URINE BARBITURATES SCREEN NEGATIVE; URINE BENZODIAZEPINES SCREEN NEGATIVE; URINE COCAINE SCREEN NEGATIVE; URINE MARIJUANA (THC) SCREEN NEGATIVE; URINE METHADONE SCREEN NEGATIVE; URINE PHENCYCLIDINE SCREEN NEGATIVE
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
[2018-08-27 15:54] LABS: FIBRINOGEN 517 mg/dL (209-497); INTERNATIONAL RATION (INR) 0.92; PARTIAL THROMBOPLASTIN TIME 21.7 SEC (23.5-35.8); PROTHROMBIN TIME 12.4 SEC (11.4-15.4)
[2018-08-27 16:04] LABS: ALANINE AMINOTRANSFERASE 14 U/L (9-52); ALBUMIN 3.4 g/dL (3.5-5.0); ALKALINE PHOSPHATASE 112 U/L (38-126); ANION GAP 10 (5-19); ASPARTATE AMINO TRANSFERASE 14 U/L (14-36); BILIRUBIN,DIRECT 0.2 mg/dL (0.0-0.4); BILIRUBIN,TOTAL 0.5 mg/dL (0.2-1.3); BLOOD UREA NITROGEN 6 mg/dL (7-20); CALCIUM 8.9 mg/dL (8.4-10.2); CARBON DIOXIDE 21 mmol/L (22-30); CHLORIDE 106 mmol/L (98-107); SODIUM 136.6 mmol/L (137-145); TOTAL PROTEIN 6.2 g/dL (6.3-8.2)
[2018-08-27 16:12] LABS: GLUCOSE 62 mg/dL (75-110)
[2018-08-27 16:16] LABS: ABSOLUTE BASOPHILS # (AUTO) 0.1 10^3/uL (0.0-0.2); ABSOLUTE EOSINOPHILS # (AUTO) 0.2 10^3/uL (0.0-0.6); ABSOLUTE MONOCYTES (AUTO) 0.4 10^3/uL (0.1-1.4); ABSOLUTE NEUT (AUTO) 6.9 10^3/uL (1.7-8.2); EOSINOPHILS % (AUTO) 1.7 % (0-6); HEMATOCRIT 34.3 % (36.0-47.0); HEMOGLOBIN 11.8 g/dL (12.0-15.5); LYMPHOCYTES % (AUTO) 20.5 % (13-45); MEAN CORPUSCULAR HGB CONC 34.4 g/dL (32.0-36.0); MEAN CORPUSCULAR VOLUME 87 fl (80-97); MONOCYTES % (AUTO) 4.4 % (3-13); PLATELET COUNT 207 10^3/uL (150-450); RED BLOOD COUNT 3.93 10^6/uL (3.72-5.28); RED CELL DISTRIBUTION WIDTH 13.8 % (11.5-14.0); SEGMENTED NEUTROPHILS % (AUTO) 72.4 % (42-78); TOTAL CELLS COUNTED % (AUTO) 100 %; WHITE BLOOD COUNT 9.6 10^3/uL (4.0-10.5)
[2018-08-27 16:57] LABS: BACTERIA (WET MOUNT) 4+ BACTERIA SEEN; EPITHELIALS (WET MOUNT) 3+ EPITHELIALS SEEN; RBCS (WET MOUNT) FEW RBCS SEEN; T.VAGINALIS (WET MOUNT) NO TRICHOMONAS SEEN; WBCS (WET MOUNT) 2+ WBCS SEEN; YEAST (WET MOUNT) NO YEAST SEEN
[2018-08-27 18:19] LABS: CHLAM PCR NOT DETECTED (NOT DETECT)
[2018-08-27 19:07] LABS: FETAL RBC COUNT 0; RHOGAM DOSE INDICATED 0 VIAL(S)
[2018-08-27 19:08] LABS: KB INTERPRETATION NEGATIVE (NEGATIVE)
== END 2018-08-27 17:20 | disposition home or self-care (01) ==
LOC: LC 12:10
PROVIDERS: ATTEND Student in an Organized Health Care Education/Training Program
PROC: 4A1HXCZ Monitoring of Products of Conception, Cardiac Rate, External Approach (ICD-10-PCS; principal; 2018-08-27)
DX: O46.93 Antepartum hemorrhage, unspecified, third trimester (principal); Z3A.34 34 weeks gestation of pregnancy
CPT/HCPCS: 36415; 59025; 76815; 80053; 80307; 81001; 83036; 85025; 85384; 85460; 85610; 85730; 86900; 86901; 87210; 87491; 87591

== ENCOUNTER 2018-10-07 20:22 | Outpatient (CLI) | payer MEDICAID ==
[2018-10-07 20:56] LABS: APPEARANCE,URINE CLEAR; BILIRUBIN,URINE NEGATIVE (NEGATIVE); COLOR,URINE STRAW; GLUCOSE, URINE 150 mg/dL (NEGATIVE); KETONES,URINE NEGATIVE (NEGATIVE); LEUKOCYTE ESTERASE,URINE TRACE (NEGATIVE); NITRITE,URINE NEGATIVE (NEGATIVE); PROTEIN,URINE NEGATIVE (NEGATIVE); URINE SPECIFIC GRAVITY 1.003; UROBILINOGEN,URINE NEGATIVE mg/dL (<2.0)
[2018-10-07 21:16] LABS: URINE AMPHETAMINES SCREEN NEGATIVE; URINE BARBITURATES SCREEN NEGATIVE; URINE BENZODIAZEPINES SCREEN NEGATIVE; URINE COCAINE SCREEN NEGATIVE; URINE MARIJUANA (THC) SCREEN NEGATIVE; URINE METHADONE SCREEN NEGATIVE; URINE PHENCYCLIDINE SCREEN NEGATIVE
== END 2018-10-07 22:50 | disposition home or self-care (01) ==
LOC: LC 20:22
PROVIDERS: ATTEND Obstetrics & Gynecology
PROC: 4A1HXCZ Monitoring of Products of Conception, Cardiac Rate, External Approach (ICD-10-PCS; principal; 2018-10-07)
DX: O46.93 Antepartum hemorrhage, unspecified, third trimester (principal); Z3A.38 38 weeks gestation of pregnancy
CPT/HCPCS: 59025; 80307; 81005

== ENCOUNTER 2018-10-08 14:38 | Outpatient (CLI) | payer MEDICAID ==
--- NOTE | 2018-10-08 14:45 | Non Stress Test Report ---
Non Stress Test Datetime Report Generated by CPN: 10/08/2018 14:45 DEMOGRAPHIC EGA NST: 38.6 INDICATION Indication for Study: Other Indication for Study: Ordered by Provider Indication for Study (NST) Other: vaginal bleeding Indication for Study (NST) Other: vaginal bleeding at 34 weeks MONITORING Monitor Explained: Monitor Explained; Test Explained; Patient Verbalized Understanding Time on Monitor: 10/07/2018 20:22 Time off Monitor: 10/07/2018 22:46 Time off Monitor: 08/27/2018 17:12 NST Duration: 144 NST INTERVENTIONS NST Interventions: None NST Interventions: PO Hydration; IV Fluids Physician Notified NST: dr Gamino BABY A: [id number] BABY A Movement : Present Movement : Present Contraction Frequency : occ Contraction Frequency : 0 FHR Baseline : 135 Accelerations : 15X15 Decelerations : None Variability : Moderate 6-25bpm NST Review: Meets Criteria for Reactive NST NST Review: Meets Criteria for Reactive NST NST Review and Verified By : JSAON ArvizuT Results: Reactive NST REPORT Report Trigger: Send Report
[2018-10-08 15:13] LABS: APPEARANCE,URINE CLOUDY; BILIRUBIN,URINE NEGATIVE (NEGATIVE); GLUCOSE, URINE >=500 mg/dL (NEGATIVE); KETONES,URINE TRACE mg/dL (NEGATIVE); LEUKOCYTE ESTERASE,URINE MODERATE (NEGATIVE); NITRITE,URINE NEGATIVE (NEGATIVE); PROTEIN,URINE 30 mg/dL (NEGATIVE); URINE SPECIFIC GRAVITY 1.022
[2018-10-08 15:17] LABS: COLOR,URINE DARK YELLOW
[2018-10-08 15:29] LABS: URINE AMPHETAMINES SCREEN NEGATIVE; URINE BARBITURATES SCREEN NEGATIVE; URINE BENZODIAZEPINES SCREEN NEGATIVE; URINE COCAINE SCREEN NEGATIVE; URINE MARIJUANA (THC) SCREEN NEGATIVE; URINE METHADONE SCREEN NEGATIVE; URINE PHENCYCLIDINE SCREEN NEGATIVE
== END 2018-10-08 15:16 | disposition home or self-care (01) ==
LOC: LC 14:38
PROVIDERS: ATTEND Student in an Organized Health Care Education/Training Program
PROC: 4A1HXCZ Monitoring of Products of Conception, Cardiac Rate, External Approach (ICD-10-PCS; principal; 2018-10-08)
DX: O46.93 Antepartum hemorrhage, unspecified, third trimester (principal); Z3A.38 38 weeks gestation of pregnancy
CPT/HCPCS: 59025; 80307; 81005

== ENCOUNTER 2018-10-11 09:46 | Inpatient (IN) | payer MEDICAID ==
--- NOTE | 2018-10-11 12:26 | RADIOLOGY REPORT (SQ) ---
EXAM DESCRIPTION: U/S PROFILE W/O STRESS COMPLETED DATE/TIME: 10/11/2018 12:18 pm REASON FOR STUDY: Variable in the office COMPARISON: 08/27/2018 TECHNIQUE: Limited funk-scale realtime and static images of the fetus to measure specified parameter s. LIMITATIONS: None. FINDINGS: HEART RATE: 169 beats per minute. ASA: 8.7 cm. BREATHING MOVEMENT: 0 points. MOVEMENT: 2 points. POSTURE AND TONE: 2 points. QUALITATIVE ASA: 2 points. OTHER: No other significant finding. IMPRESSION: BIOPHYSICAL PROFILE: 07/20. Trimester of : Third - 28 weeks to delivery COMMENT: BREATHING MOVEMENTS: 2 POINTS: PRESENT 0 POINTS: ABSENT MOTION: 2 POINTS: PRESENT 0 POINTS: ABSENT TONE: 2 POINTS: PRESENT 0 POINTS: ABSENT AMNIOTIC FLUID VOLUME: 2 POINTS: LARGEST POCKET GREATER THAN 2 CM DEPTH. 0 POINTS: NO POCKET OF 2 CM. TECHNICAL DOCUMENTATION: JOB ID: [id number] [employer]- All Rights Reserved Reading location - IP/workstation name: [email or web address]
[2018-10-11] MEDS ORDERED: RINGERS SOLUTION,LACTATED 300 ML IV ONE (14:12)
[2018-10-11] MEDS ORDERED: OXYTOCIN/NORMAL SALINE 20 UNIT/1,000 ML RTUINJ IV PRN (14:12)
[2018-10-11] MEDS ORDERED: OXYTOCIN 10 UNIT/ML VIAL ONE (14:23)
[2018-10-11] MEDS ORDERED: MISOPROSTOL 0.2 MG TABLET ONE (14:24)
[2018-10-11] MEDS ORDERED: LIDOCAINE 1% INJ-PF (10 MG/ML) 30 ML SDV ONE (14:24)
[2018-10-11] MEDS ORDERED: OXYTOCIN/NORMAL SALINE 20 UNIT/1,000 ML RTUINJ ONE (14:24)
[2018-10-11 15:09] LABS: ABSOLUTE EOSINOPHILS # (AUTO) 0.1 10^3/uL (0.0-0.6); ABSOLUTE LYMPHOCYTES (AUTO) 2.2 10^3/uL (0.5-4.7); ABSOLUTE MONOCYTES (AUTO) 0.4 10^3/uL (0.1-1.4); ABSOLUTE NEUT (AUTO) 7.4 10^3/uL (1.7-8.2); BASOPHILS % (AUTO) 0.5 % (0-2); EOSINOPHILS % (AUTO) 1.5 % (0-6); HEMOGLOBIN 11.9 g/dL (12.0-15.5); LYMPHOCYTES % (AUTO) 21.3 % (13-45); MEAN CORPUSCULAR HEMOGLOBIN 28.8 pg (27.0-33.4); MEAN CORPUSCULAR VOLUME 85 fl (80-97); MONOCYTES % (AUTO) 4.4 % (3-13); PLATELET COUNT 177 10^3/uL (150-450); RED BLOOD COUNT 4.13 10^6/uL (3.72-5.28); RED CELL DISTRIBUTION WIDTH 14.1 % (11.5-14.0); SEGMENTED NEUTROPHILS % (AUTO) 72.3 % (42-78); TOTAL CELLS COUNTED % (AUTO) 100 %; WHITE BLOOD COUNT 10.2 10^3/uL (4.0-10.5)
[2018-10-11] MEDS: RINGERS SOLUTION,LACTATED 1,000 ML IV PRN (15:18)
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
[2018-10-11 19:52] LABS: APPEARANCE,URINE CLEAR; BILIRUBIN,URINE NEGATIVE (NEGATIVE); COLOR,URINE STRAW; GLUCOSE, URINE 50 mg/dL (NEGATIVE); KETONES,URINE 20 mg/dL (NEGATIVE); LEUKOCYTE ESTERASE,URINE NEGATIVE (NEGATIVE); NITRITE,URINE NEGATIVE (NEGATIVE); PROTEIN,URINE NEGATIVE (NEGATIVE); URINE SPECIFIC GRAVITY 1.005; UROBILINOGEN,URINE NEGATIVE mg/dL (<2.0)
[2018-10-11 19:56] LABS: URINE AMPHETAMINES SCREEN NEGATIVE; URINE BARBITURATES SCREEN NEGATIVE; URINE BENZODIAZEPINES SCREEN NEGATIVE; URINE COCAINE SCREEN NEGATIVE; URINE MARIJUANA (THC) SCREEN NEGATIVE; URINE METHADONE SCREEN NEGATIVE; URINE PHENCYCLIDINE SCREEN NEGATIVE
[2018-10-12] MEDS ORDERED: MISOPROSTOL 0.1 MG TABLET ONE ×3 (02:42→18:06)
[2018-10-12] MEDS ORDERED: MISOPROSTOL 0.1 MG TABLET PO ONE ×3 (02:44→18:04)
[2018-10-12] MEDS ORDERED: MISOPROSTOL 0.1 MG TABLET PV ONE ×3 (02:46→18:03)
[2018-10-12] MEDS: RINGERS SOLUTION,LACTATED 1,000 ML IV PRN (02:56)
[2018-10-13] MEDS ORDERED: FENTANYL CITRATE INJ/PF 100 MCG/2 ML AMPUL IV ONE (01:00)
[2018-10-13] MEDS ORDERED: FENTANYL CITRATE INJ/PF 100 MCG/2 ML AMPUL ONE ×2 (01:14→01:29)
[2018-10-13] MEDS ORDERED: BUPIVACAINE HCL 0.25 % INJ/PF (2.5 MG/1 ML) 30 ML VIAL ONE (01:28)
[2018-10-13] MEDS ORDERED: PHENYLEPHRINE HCL INJ/PF 10 MG/1 ML SDV ONE (01:28)
[2018-10-13] MEDS ORDERED: EPHEDRINE SULFATE INJ 50 MG/1 ML AMPULE ONE (01:28)
[2018-10-13] MEDS ORDERED: FENTANYL/BUPIVACAINE/NS/PF 0 MCG/0 ML RTUINJ EPI ONE (01:28)
[2018-10-13 01:43] LABS: ABSOLUTE BASOPHILS # (AUTO) 0.1 10^3/uL (0.0-0.2); ABSOLUTE EOSINOPHILS # (AUTO) 0.1 10^3/uL (0.0-0.6); ABSOLUTE LYMPHOCYTES (AUTO) 2.4 10^3/uL (0.5-4.7); ABSOLUTE MONOCYTES (AUTO) 0.7 10^3/uL (0.1-1.4); BASOPHILS % (AUTO) 0.5 % (0-2); HEMATOCRIT 35.8 % (36.0-47.0); HEMOGLOBIN 12.2 g/dL (12.0-15.5); LYMPHOCYTES % (AUTO) 19.7 % (13-45); MEAN CORPUSCULAR HEMOGLOBIN 28.7 pg (27.0-33.4); MEAN CORPUSCULAR HGB CONC 34.1 g/dL (32.0-36.0); MEAN CORPUSCULAR VOLUME 84 fl (80-97); MONOCYTES % (AUTO) 5.4 % (3-13); PLATELET COUNT 211 10^3/uL (150-450); RED BLOOD COUNT 4.26 10^6/uL (3.72-5.28); RED CELL DISTRIBUTION WIDTH 13.9 % (11.5-14.0); SEGMENTED NEUTROPHILS % (AUTO) 73.4 % (42-78); TOTAL CELLS COUNTED % (AUTO) 100 %; WHITE BLOOD COUNT 12.2 10^3/uL (4.0-10.5)
[2018-10-13] MEDS ORDERED: DIBUCAINE 1% OINTMENT 56 GM TP PRN (04:11)
[2018-10-13] MEDS ORDERED: BENZOCAINE/MENTHOL AEROSOL SPRAY 56 ML TOP PRN (04:11)
[2018-10-13] MEDS ORDERED: MEASLES,MUMPS&RUBELLA VACC/PF 0.5 ML VIAL SUBCUT PRN (04:11)
[2018-10-13] MEDS ORDERED: DIPH/PERTUSS(ACELL)/TETANUS VAC/PF 0.5 ML SYR (>=10YO) IM PRN (04:11)
[2018-10-13] MEDS ORDERED: ZOLPIDEM TARTRATE 5 MG TABLET PO PRN (04:11)
[2018-10-13] MEDS ORDERED: OXYTOCIN/NORMAL SALINE 1,000 ML IV PRN (04:11)
[2018-10-13] MEDS ORDERED: ACETAMINOPHEN WITH CODEINE #3 TABLET PO PRN ×2 (04:11)
--- NOTE | 2018-10-13 04:59 | Warning Signs in Babies ---
VOD Warning Signs Datetime Report Generated by [facility]: 10/13/2018 04:59 VOD#608 -Warning Signs in Babies: Viewed with Parent(s)/Family (10/13/2018 04:08:Sammie Renee RN)
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
[2018-10-13] MEDS: FERROUS SULFATE 325 MG TABLET PO SCH ×2 (11:09→17:49)
[2018-10-13] MEDS: PRENATAL VITAMIN W DHA CAPSULE PO SCH (11:10)
[2018-10-13] MEDS: SENNOSIDES/DOCUSATE 8.6-50 MG 1 EACH TABLET PO SCH (11:10)
[2018-10-13] MEDS: DOCUSATE SODIUM 100 MG CAPSULE PO SCH ×2 (11:10→17:49)
[2018-10-13] MEDS: IBUPROFEN 800 MG TABLET PO SCH ×2 (13:42→22:00)
[2018-10-14] MEDS: IBUPROFEN 800 MG TABLET PO SCH (05:16)
[2018-10-14 08:08] VITALS: BP 104/52
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
[2018-10-14] MEDS: DOCUSATE SODIUM 100 MG CAPSULE PO SCH (10:14)
[2018-10-14] MEDS: SENNOSIDES/DOCUSATE 8.6-50 MG 1 EACH TABLET PO SCH (10:14)
[2018-10-14] MEDS: FERROUS SULFATE 325 MG TABLET PO SCH (10:14)
[2018-10-14] MEDS: PRENATAL VITAMIN W DHA CAPSULE PO SCH (10:21)
--- NOTE | 2018-10-17 21:34 | Delivery Summary ---
Del Sum A-C Datetime Report Generated by CPN: 10/17/2018 21:34 DELIVERY PERSONNEL DELIVERY PERSONNEL: [id number] Delivery Doctor:: Swapna Thapa MD Labor and Delivery Nurse:: Sammie Renee RN Nursery Nurse:: Jolanta Sandhu RN Nursery Nurse:: Evelyn Roy, RN MATERNAL INFORMATION Delivery Anesthesia: None Medications After Delivery: Pitocin Bolus-Please Comment Meds After Delivery Comment: Pitocin 20 units/1000 ml NS bolus following placenta Estimated Blood Loss (ml): 200 Delivery QBL: 100 Maternal Complications: None LABOR SUMMARY EDC: 10/15/2018 00:00 No. Babies in Womb: 1 Attempted: No Labor Anesthesia: None LABOR INFORMATION Reason for Induction: Other Reason for Induction- Other: bpp 6/8 Onset of Labor: 10/13/2018 01:32 Complete Dilatation: 10/13/2018 01:43 Cervical Ripening Agents: Cytotec @ 50 mcg PO and 25 mcg PV Cervical Ripening Agents: Cytotec @ 25 mcg PV and 50 mcg PO Cervical Ripening Agents: Cytotec @ (Annotations: cytotec 50mcg po and cytotec 25mcg pv) Oxytocin: Induction Group B Beta Strep: negative Antibiotics # of Doses: 0 Antibiotics Time of Last Dose: n/a Name of Antibiotic Given: n/a Steroids Given: None Reason Steroids Not Administered: Not Applicable MEMBRANES Membranes Rupture Method: Artificial Rupture of Membranes: 10/13/2018 00:07 Length of Rupture (hr): 1.83 Amniotic Fluid Color: Light Meconium Amniotic Fluid Amount: Small Amniotic Fluid Odor: Normal STAGES OF LABOR Stage 1 hr: 0 Stage 1 min: 11 Stage 2 hr: 0 Stage 2 min: 14 Stage 3 hr: 0 Stage 3 min: 4 Total Time in Labor hr: 0 Total Time in Labor min: 29 VAGINAL DELIVERY Episiotomy: None Laceration #1: None Laceration Extension #1: N/A Laceration Repair: Not Applicable Sponge Count Correct: Yes Sharps Count Correct: Yes CSECTION DELIVERY Primary Indication: N/A Secondary Indication: N/A CSection Incidence: N/A Labor: N/A Elective: N/A CSection Incision: N/A BABY A INFORMATION Infant Delivery Date/Time: 10/13/2018 01:57 Method of Delivery: Vaginal Born in Route : No : N/A Forceps: N/A Vacuum Extraction: N/A Shoulder Dystocia : No PRESENTATION/POSITION BABY A Presentation: Cephalic Cephalic Presentation: Vertex Vertex Position: Right Occipital Anterior Breech Presentation: N/A PLACENTA INFORMATION BABY A Placenta Delivery Time : 10/13/2018 02:01 Placenta Method of Delivery: Spontaneous Placenta Status: Delivered SCORES BABY A Heart Rate 1 min: >100 bpm Resp Effort 1 min: Good Cry Reflex Irritability 1 min: Cough or Sneeze or Pulls Away Muscle Tone 1 min: Active Motion Color 1 min: Blue/Pale Resuscitation Effort 1 min: Tactile Stimulation SCORE 1 MIN: 8 Heart Rate 5 min: >100 bpm Resp Effort 5 min: Good Cry Reflex Irritability 5 min: Cough or Sneeze or Pulls Away Muscle Tone 5 min: Active Motion Color 5 min: Body [place], Extremities Blue Resuscitation Effort 5 min: Tactile Stimulation SCORE 5 MIN: 9 INFANT INFORMATION BABY A Gestational Age at Delivery: 39.5 Gestational Status: Full Term- 39- 40.6 Weeks Outcome : Liveborn Infant Condition : Stable Infant Sex: Male IDENTIFICATION BABY A Infant Verification Date/Time: 10/13/2018 02:02 ID Band Number: [id number] Mother's Name Verified: Yes Infant RN Verifying : K. Antonio, Rn Additional Verifying Personnel: NLuana Paul, RN WEIGHT/LENGTH BABY A Birthweight (gm): 4090 Weight (lb): 9 Infant Weight (oz): 0 Length (in): 20.50 Infant Length (cm): 52.07 CORD INFORMATION BABY A No. Cord Vessels: 3 Nuchal Cord : Around Neck x1, Loose Cord Blood Taken: Yes-For Eval (Mom's Blood Type - or O+) Infant Suction: Mouth; Nose ASSESSMENT BABY A Complications: Meconium Physical Findings- Other: see intial Respirations: Appears Normal Skin to Skin: Yes Skin to Skin Time (min): 45 Pediatric Speech Therapist/ALS Called : No Infant Care By: Mary Lou Sandhu RN/L. Roy, RN Transferred To: Remains with Mother BABY B INFORMATION : N/A SIGNATURES Signature: with User ID: [email or web address]
== END 2018-10-14 13:00 | disposition home or self-care (01) | DRG 807 ==
LOC: LC 09:46 → LR 14:04 → 2S 10-13 06:40
PROVIDERS: ADMIT Obstetrics & Gynecology; ATTEND Obstetrics & Gynecology
PROC: 10E0XZZ Delivery of Products of Conception, External Approach (ICD-10-PCS; principal; 2018-10-13)
DX: O24.420 Gestational diabetes mellitus in childbirth, diet controlled (principal); Z37.0 Single live birth; O76 Abnormality in fetal heart rate and rhythm complicating labor and delivery; O43.113 Circumvallate placenta, third trimester; O69.81X0 Labor and delivery complicated by cord around neck, without compression, not applicable or unspecified; O77.0 Labor and delivery complicated by meconium in amniotic fluid; Z62.810 Personal history of physical and sexual abuse in childhood; Z3A.39 39 weeks gestation of pregnancy
CPT/HCPCS: 36415; 59025; 76819; 80307; 81001; 85025; 86592; 86850; 86900; 86901; 90715; J2370; J2590; J3010; J3490

== ENCOUNTER 2019-01-31 18:06 | Emergency (ER) | payer SELFPAY ==
--- NOTE | 2019-01-31 18:14 | ER Document Report ---
ED Medical Screen (RME) - General Chief Complaint: Breast Lump Stated Complaint: BREAST PAIN Time Seen by Provider: 01/31/19 18:10 Primary Care Provider: PADMAJA HAN MD [Primary Care Provider] - Follow up as needed Mode of Arrival: Ambulatory Information source: Patient Notes: 28-year-old female presents to ED for complaint of right breast pain for the last 4 months. She does have a 4-month-old son and she is breast-feeding. She states there is no redness no swelling no firmness to the breast. She states she does not have medical concerns and cannot go to her primary care. She states she is tried pumping, hot, cold, Tylenol, and Motrin with no relief. I have greeted and performed a rapid initial assessment of this patient. A comprehensive ED assessment and evaluation of the patient, analysis of test results and completion of medical decision making process will be conducted by an additional ED providers. TRAVEL OUTSIDE OF THE [place] IN LAST 30 DAYS: No - Related Data Allergies/Adverse Reactions: iodine Allergy (Verified 10/08/18 14:54) Past Medical History Pulmonary Medical History: Reports: Hx Asthma Neurological Medical History: Denies: Hx Seizures Endocrine Medical History: Denies: Hx Diabetes Mellitus Type 1, Hx Diabetes Mellitus Type 2 Renal/ Medical History: Denies: Hx Peritoneal Dialysis Musculoskeltal Medical History: Reports Hx Arthritis Psychiatric Medical History: Reports: Hx Anxiety, Hx Post Traumatic Stress Disorder Past Surgical History: Reports: Hx Oral Surgery - wisdom, Hx Orthopedic Surgery - left ankle, Hx Tonsillectomy. Denies: Hx Abdominal Surgery - Immunizations Hx Diphtheria, Pertussis, Tetanus Vaccination: Yes Doctor's Discharge - Discharge Referrals: PADMAJA HAN MD [Primary Care Provider] - Follow up as needed
[2019-01-31 19:07] LABS: ABSOLUTE EOSINOPHILS # (AUTO) 0.4 10^3/uL (0.0-0.6); ABSOLUTE LYMPHOCYTES (AUTO) 2.6 10^3/uL (0.5-4.7); ABSOLUTE MONOCYTES (AUTO) 0.5 10^3/uL (0.1-1.4); ABSOLUTE NEUT (AUTO) 3.9 10^3/uL (1.7-8.2); BASOPHILS % (AUTO) 0.3 % (0-2); EOSINOPHILS % (AUTO) 5.9 % (0-6); HEMOGLOBIN 13.3 g/dL (12.0-15.5); LYMPHOCYTES % (AUTO) 34.9 % (13-45); MEAN CORPUSCULAR HEMOGLOBIN 28.7 pg (27.0-33.4); MEAN CORPUSCULAR HGB CONC 34.1 g/dL (32.0-36.0); MEAN CORPUSCULAR VOLUME 84 fl (80-97); MONOCYTES % (AUTO) 6.1 % (3-13); PLATELET COUNT 299 10^3/uL (150-450); RED BLOOD COUNT 4.63 10^6/uL (3.72-5.28); RED CELL DISTRIBUTION WIDTH 13.7 % (11.5-14.0); SEGMENTED NEUTROPHILS % (AUTO) 52.8 % (42-78); TOTAL CELLS COUNTED % (AUTO) 100 %; WHITE BLOOD COUNT 7.4 10^3/uL (4.0-10.5)
[2019-01-31 19:33] LABS: ALBUMIN 3.9 g/dL (3.5-5.0); ALKALINE PHOSPHATASE 79 U/L (38-126); ANION GAP 10 (5-19); ASPARTATE AMINO TRANSFERASE 24 U/L (14-36); BILIRUBIN,DIRECT 0.1 mg/dL (0.0-0.4); BILIRUBIN,TOTAL 0.5 mg/dL (0.2-1.3); BLOOD UREA NITROGEN 13 mg/dL (7-20); CALCIUM 9.7 mg/dL (8.4-10.2); CARBON DIOXIDE 28 mmol/L (22-30); CHLORIDE 102 mmol/L (98-107); GLUCOSE 87 mg/dL (75-110); TOTAL PROTEIN 6.9 g/dL (6.3-8.2)
--- NOTE | 2019-01-31 22:51 | ER Document Report ---
ED Breast Problem - General Chief Complaint: Breast Problem Stated Complaint: BREAST PAIN Time Seen by Provider: 01/31/19 18:10 Primary Care Provider: [facility] [Provider Group] - Follow up as needed Mode of Arrival: Ambulatory Notes: Patient is a 28-year-old female that comes to the emergency department for chief complaint of right breast pain. She states this is been going on for 4 months, she is nursing a 4-month-old, she states that after the child latches on she will start having pain shooting through the breast, however she will also have spasm feelings throughout the breast and throughout the day. She states it hurts on a daily basis. She denies latching problems, rash, abnormal heat, swelling, fever, abnormal discharge, or problems with the left breast. She has seen the [employer] consultant and they said mechanically everything is fine. TRAVEL OUTSIDE OF THE [place] IN LAST 30 DAYS: No - Related Data Allergies/Adverse Reactions: iodine Allergy (Verified 01/31/19 18:10) Past Medical History - General Information source: Patient - Social History Smoking Status: Never Smoker Frequency of alcohol use: None Drug Abuse: None Lives with: Family Family History: Reviewed & Not Pertinent Patient has suicidal ideation: No Patient has homicidal ideation: No Pulmonary Medical History: Reports: Hx Asthma Neurological Medical History: Denies: Hx Seizures Endocrine Medical History: Denies: Hx Diabetes Mellitus Type 1, Hx Diabetes Mellitus Type 2 Renal/ Medical History: Denies: Hx Peritoneal Dialysis Musculoskeletal Medical History: Reports Hx Arthritis Psychiatric Medical History: Reports: Hx Anxiety, Hx Post Traumatic Stress Disorder Past Surgical History: Reports: Hx Oral Surgery - wisdom, Hx Orthopedic Surgery - left ankle, Hx Tonsillectomy. Denies: Hx Abdominal Surgery - Immunizations Hx Diphtheria, Pertussis, Tetanus Vaccination: Yes Review of Systems - Review of Systems Constitutional: No symptoms reported EENT: No symptoms reported Cardiovascular: No symptoms reported Respiratory: No symptoms reported Gastrointestinal: No symptoms reported Genitourinary: No symptoms reported Female Genitourinary: See HPI Musculoskeletal: No symptoms reported Skin: See HPI Hematologic/Lymphatic: No symptoms reported Neurological/Psychological: No symptoms reported Physical Exam - Vital signs Vitals: Temp Pulse Resp BP Pulse Ox 97.6 F 71 24 H 121/69 99 01/31/19 18:09 01/31/19 18:09 01/31/19 18:09 01/31/19 18:09 01/31/19 18:09 - Notes Notes: GENERAL: Alert, interacts well. No acute distress. HEAD: Normocephalic, atraumatic. EYES: Pupils equal, round, and reactive to light. Extraocular movements intact. ENT: Oral mucosa moist, tongue midline. Oropharynx unremarkable. Airway patent. NECK: Full range of motion. Supple. Trachea midline. LUNGS: Clear to auscultation bilaterally, no wheezes, rales, or rhonchi. No respiratory distress. HEART: Regular rate and rhythm. No murmur ABDOMEN: Soft, non-tender. Non-distended. Bowel sounds present in all 4 quadrants. GENITOURINARY: Deferred EXTREMITIES: Moves all 4 extremities spontaneously. No edema, normal radial and dorsalis pedis pulses bilaterally. No cyanosis. BACK: no cervical, thoracic, lumbar midline tenderness. No saddle anesthesia, normal distal neurovascular exam. Moves all extremities in full range of motion. NEUROLOGICAL: Alert and oriented x3. Normal speech. Cranial nerves II through XII grossly intact. PSYCH: Normal affect, normal mood. SKIN: Limited exam of the right breast shows no overt swelling, erythema, induration, fluctuance, discharge, or rash. Course - Re-evaluation Re-evalutation: Patient smiling, talkative, alert, well-appearing. Unremarkable vital signs. CBC, chemistry reviewed from triage and unremarkable. Patient became very shy about the breast exam, she states she has a history of PTSD and does not want anyone examining her breast if possible. Unfortunately I do not have a female provider for her to be seen by meghan. I did explain this was totally up to her and if she did not want the exam and she did not have to allow it and we would treat her to the best of her ability without it. She did afterwards present the top of the breast up to the top of the areola on the right breast on exam and demonstrated by palpating the area herself, this did not show any obvious concerning findings. This was performed with Fatemeh GOMEZ at bedside. Discussed with patient. She is concerned that she continues to veloz the same symptoms, is asking for recommendations. She is also concerned there c ould be an underlying infection. Patient does not report problems with latching, reports that she feeds and pumps frequently and does not have a problem with overfilling or failure to clear, this could be vasospasm but this is nonspecific. I do not see a rash or wound. There does not appear to be overt mastitis or infection. However because patient has tried everything she is requesting we treat this as much as we can therefore she was placed on Keflex to see if this will help with possible underlying early mastitis, I also gave her other recommendations. Patient states she will follow-up with [facility] for additional management, I discussed return precautions with patient and family at bedside. They state understanding and agreement. - Vital Signs Vital signs: Temp Pulse Resp BP Pulse Ox 97.6 F 71 24 H 121/69 99 01/31/19 18:09 01/31/19 18:09 01/31/19 18:09 01/31/19 18:09 01/31/19 18:09 - Laboratory Result Diagrams: 01/31/19 18:39 01/31/19 18:39 Discharge - Discharge Clinical Impression: Breast pain, right Condition: Stable Disposition: HOME, SELF-CARE Additional Instructions: It is not clear what the cause of your pain is. This could be underlying problem with the ducts, vasospasm, etc. I recommend you change her bra, use cool green cabbage leaves, continue ibuprofen, take cephalexin as prescribed to completion. Follow-up with [facility] TECHNIC[facility] for additional management. Come back if you are worse including swelling, redness, fever, severe worsening pain, or any other concerning symptoms. Prescriptions: Cephalexin Monohydrate [Keflex 500 mg Capsule] 500 mg PO BID 7 Days #14 capsule Referrals: [facility] [Provider Group] - Follow up as needed
[2019-01-31 23:07] VITALS: BP 127/70
== END 2019-01-31 23:08 | disposition home or self-care (01) ==
LOC: ER 18:06
DX: N64.4 Mastodynia (principal); J45.909 Unspecified asthma, uncomplicated; E11.9 Type 2 diabetes mellitus without complications
CPT/HCPCS: 36415; 80053; 85025; 99283

== ENCOUNTER 2019-02-10 20:33 | Emergency (ER) | payer SELFPAY ==
--- NOTE | 2019-02-10 22:23 | ER Document Report ---
HPI - HPI Pain Level: 1 Context: Patient is a 28-year-old female who presents to the emergency department with a chief complaint of cat bite. Patient reports last night she was bending down to feed a feral cat when it scratched the top of her left thumb with its tooth. Patient reports that the cat was not acting abnormally. She states that as she was placing the bowl down on the ground with the food and the cat started to eat and is tooth scratched her. Patient reports she immediately cleaned the wound and has been cleaning it since. Patient reports is very superficial. Patient states she sought care because she is concerned about infection and possible rabies. Patient reports her tetanus shot is up-to-date. Patient denies redness or drainage around the wound. - CONSTITUTIONAL Constitutional: DENIES: Fever, Chills - EENT EENT: DENIES: Sore Throat, Ear Pain, Eye problems - NEURO Neurology: DENIES: Headache, Weakness, Vision blurred, Dizzinesss / Vertigo - CARDIOVASCULAR Cardiovascular: DENIES: Chest pain - RESPIRATORY Respiratory: DENIES: Trouble Breathing, Coughing - GASTROINTESTINAL Gastrointestinal: DENIES: Abdominal Pain, Black / Bloody Stools - URINARY Urinary: DENIES: Dysuria, Urgency, Frequency - REPRODUCTIVE LMP: jan 31 Reproductive: DENIES: :, Postmenopausal, Abnormal bleeding / discharge - MUSCULOSKELETAL Musculoskeletal: REPORTS: Extremity pain - left thumb <LAURO COTO - Last Filed: 02/10/19 22:38> <LAILA WHEELER - Last Filed: 02/11/19 03:55> - HPI Time Seen by Provider: 02/10/19 21:42 Past Medical History - General Information source: Patient - Social History Smoking Status: Never Smoker Chew tobacco use (# tins/day): No Frequency of alcohol use: None Drug Abuse: None Lives with: Family Family History: Reviewed & Not Pertinent Patient has suicidal ideation: No Patient has homicidal ideation: No - Past Medical History Cardiac Medical History: Reports: None Pulmonary Medical History: Reports: Hx Asthma EENT Medical History: Reports: None Neurological Medical History: Reports: None. Denies: Hx Seizures Endocrine Medical History: Reports: None. Denies: Hx Diabetes Mellitus Type 1, Hx Diabetes Mellitus Type 2 Renal/ Medical History: Reports: None. Denies: Hx Peritoneal Dialysis Malignancy Medical History: Reports: None GI Medical History: Reports: None Musculoskeletal Medical History: Reports Hx Arthritis Skin Medical History: Reports None Psychiatric Medical History: Reports: Hx Anxiety, Hx Post Traumatic Stress Disorder Traumatic Medical History: Reports: None Infectious Medical History: Reports: None Past Surgical History: Reports: Hx Oral Surgery - wisdom, Hx Orthopedic Surgery - left ankle, Hx Tonsillectomy. Denies: Hx Abdominal Surgery - Immunizations Hx Diphtheria, Pertussis, Tetanus Vaccination: Yes <LAURO COTO - Last Filed: 02/10/19 22:38> Vertical Provider Document - CONSTITUTIONAL Agree With Documented VS: Yes Exam Limitations: No Limitations General Appearance: No Apparent Distress - INFECTION CONTROL TRAVEL OUTSIDE OF THE [place] IN LAST 30 DAYS: No - HEENT HEENT: Atraumatic, Normal ENT Exam, Normocephalic, PERRLA - NECK Neck: Normal Inspection - RESPIRATORY Respiratory: Breath Sounds Normal, No Respiratory Distress - CARDIOVASCULAR Cardiovascular: Regular Rate, Regular Rhythm - GI/ABDOMEN Gastrointestinal: Abdomen Soft, Abdomen Non-Tender, Normal Bowel Sounds - MUSCULOSKELETAL/EXTREMETIES Musculoskeletal/Extremeties: FROM - NEURO Level of Consciousness: Awake, Alert, Appropriate - DERM Integumentary: Warm, Dry Notes: Patient is a superficial abrasion 1/2 cm noted to the dorsal aspect of the left thumb. There is no erythema, drainage, edema. Patient has full range of motion and of the left thumb and has good flexion and extension. Patient has a palpable left radial pulse. <LAURO COTO - Last Filed: 02/10/19 22:38> Course - Re-evaluation Re-evalutation: 02/10/19 22:39 I did discuss the risk and the benefit of receiving the rabies immunoglobulin as well as the vaccine. I did inform the patient ultimately there is no cure for rabies if she were to have this in the ED the likelihood of dying is high if she were to be exposed. We will give the rabies immunoglobulin as well as the vaccine here. We will also give antibiotics to prevent infection. Patient educated to keep the wound clean and dry and given strict return precautions. 02/10/19 22:40 I did discuss the patient's case with Dr. Wheeler, as the patient is concerned about the immunoglobulin and vaccine exposure to her 3-month-old baby as she is strictly breast-feeding. She does recommend receiving the immunoglobulin and there is no data that it will harm the child and benefit outweighs risk and ultimately she can from the rabies if she was exposed. Patient was given this information and agrees to the rabies vaccine. - Vital Signs Vital signs: Temp Pulse Resp BP Pulse Ox 98.0 F 72 20 138/79 H 97 02/10/19 20:42 02/10/19 20:42 02/10/19 20:42 02/10/19 20:42 02/10/19 20:42 <LAURO COTO - Last Filed: 02/10/19 22:38> - Re-evaluation Re-evalutation: 02/11/19 03:51 I did personally see and examine this patient in conjunction with Lauro Coto NP. Patient was bitten by a feral cat, is not confident that she can get the cat to provide it to animal control for observation. Patient does have a puncture wound to her right hand. I did discuss with the patient that she does not have to have the immunoglobulin or the vaccine if she can provide the cat animal control but if she cannot she is at high risk for dying from rabies should she contract the virus. Patient at this point is willing to accept the vaccine and the immunoglobulin. These should both be safe during breast- feeding. Patient will continue to follow either at the hospital or as an outpatient for continued vaccination. Patient will be discharged to home. - Vital Signs Vital signs: Temp Pulse Resp BP Pulse Ox 98.2 F 66 16 120/57 L 98 02/11/19 01:22 02/11/19 01:22 02/11/19 01:22 02/11/19 01:22 02/11/19 01:22 <LAILA WHEELER - Last Filed: 02/11/19 03:55> Discharge <LAURO COTO - Last Filed: 02/10/19 22:38> <LAILA WHEELER - Last Filed: 02/11/19 03:55> - Discharge Clinical Impression: Cat bite of left thumb Qualifiers: Encounter type: initial encounter Qualified Code(s): S61.052A - Open bite of left thumb without damage to nail, initial encounter Condition: Stable Disposition: HOME, SELF-CARE Additional Instructions: *Today was seen in the emergency department for a cat bite. It does appear that you have a superficial open cut to the top of your left thumb. It does not appear to be infected. We do suggest oral antibiotics to help prevent infection. The typical antibiotic we used for this is Augmentin, you will take this twice daily for the next 10 days. This will help prevent infection. Please keep the wound clean and dry. Please monitor for increased redness, increased swelling, drainage. If you experience any of these symptoms please return to the emergency department immediately. Augmentin is safe to take with and breast-feeding. There is a small chance that your child could potentially have a rash or diarrhea from the antibiotic but it will not overall harm him. *You have also been given the rabies immunoglobulin and vaccine. The nurse has given you a vaccine schedule in which you do need to return to receive a few more doses of the vaccine. Please make sure that you do this as ultimately you can from rabies and there is no cure. Animal Bites Animal bites are often heavily contaminated with bacteria. In spite of thorough cleansing and proper treatment, these wounds frequently become infected. Bite wounds of the hands are especially prone to complications. Bites are dressed, if possible. Large wounds may require suturing after internal cleansing. Because of infection risk, some large wounds must remain unstitched. Your doctor is trained to advise you on the best treatment for your bite. Call the doctor at once if the wound becomes red, swollen, warm, increasingly painful, or if it begins to drain. Danger signs also include red streaks up the involved extremity, swollen glands in the groin or under the arm, or fever and chills. The risk of rabies from domestic animals is very low. Bats, sick animals, and wild animals may expose you to rabies. The physician, or the health department, will inform you if you will need to receive the rabies vaccine. Prescriptions: Amox Tr/Potassium Clavulanate [Augmentin 875-125 Tablet] 1 tab PO BID 10 Days tablet Referrals: MILAN TURPIN MD [Primary Care Provider] - Follow up as needed
[2019-02-10] MEDS ORDERED: RABIES IMMUNE GLOBULIN INJ/PF 300 UNIT/ML VIAL IM ONE (22:32)
[2019-02-10] MEDS ORDERED: RABIES VACCINE (PCEC)/PF 2.5 UNIT/1 ML KIT IM ONE (22:32)
[2019-02-11 01:22] VITALS: BP 120/57
== END 2019-02-11 01:22 | disposition home or self-care (01) ==
LOC: ER 20:33
DX: S60.372A Other superficial bite of left thumb, initial encounter (principal); W55.01XA Bitten by cat, initial encounter; Y93.K9 Activity, other involving animal care; J45.909 Unspecified asthma, uncomplicated; Z20.3 Contact with and (suspected) exposure to rabies; Z23 Encounter for immunization
CPT/HCPCS: 90376; 90471; 90675; 96372; 99283

== ENCOUNTER 2019-10-13 21:05 | Emergency (ER) | payer MEDICAID ==
[2019-10-13] MEDS ORDERED: IBUPROFEN 800 MG TABLET PO ONE (23:38)
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
--- NOTE | 2019-10-14 00:08 | RADIOLOGY REPORT (SQ) ---
EXAM DESCRIPTION: XR HAND 3 OR MORE VIEWS COMPLETED DATE/TME: 10/13/2019 23:38 CLINICAL HISTORY: 29 years, Female, crush injury to right hand COMPARISON: None. NUMBER OF VIEWS: 3 TECHNIQUE: 3 views of the right hand LIMITATIONS: None. FINDINGS: Diffuse soft tissue swelling. Negative for acute fracture or dislocation. No soft tissue gas IMPRESSION: Soft tissue swelling. No acute fracture copyright 2010 [employer]- All Rights Reserved
[2019-10-14 00:41] VITALS: BP 130/73
[2019-10-14] MEDS ORDERED: CEPHALEXIN 500 MG CAPSULE PO ONE (01:00)
== END 2019-10-14 01:15 | disposition home or self-care (01) ==
LOC: ER 21:05
DX: S67.21XA Crushing injury of right hand, initial encounter (principal); W23.1XXA Caught, crushed, jammed, or pinched between stationary objects, initial encounter
CPT/HCPCS: 99283; 73130; 29125; J3490

== ENCOUNTER 2019-11-07 10:35 | Emergency (ER) | payer MEDICAID ==
--- NOTE | 2019-11-07 10:51 | ER Document Report ---
ED Medical Screen (RME) - General Chief Complaint: Anxiety Stated Complaint: ANXIETY Time Seen by Provider: 11/07/19 10:44 Primary Care Provider: AKILA COURTNEY PA-C [Primary Care Provider] - Follow up as needed Notes: Patient is a 29-year-old female who presents emergency department with a chief complaint of anxiety attack. Patient reports she does have a history of anxiety but does not currently take or has taken medication in the past. Patient reports this morning she was at the dentist office when she started to have anxiety. Patient reports she is gets very anxious while at the dentist so they were giving her laughing gas. Patient reports she started to shake and does not remember anything afterwards. She was told that she did pass out but did not fall or harm herself as she was in the chair. EMS was called and patient was brought to the emergency department. Patient reports at that time she did have chest pain but that has since improved. TRAVEL OUTSIDE OF THE [place] IN LAST 30 DAYS: No - Related Data Allergies/Adverse Reactions: iodine Allergy (Verified 11/07/19 10:48) shellfish derived Allergy (Verified 11/07/19 10:48) Past Medical History Pulmonary Medical History: Reports: Hx Asthma Neurological Medical History: Denies: Hx Seizures Endocrine Medical History: Denies: Hx Diabetes Mellitus Type 1, Hx Diabetes Mellitus Type 2 Renal/ Medical History: Denies: Hx Peritoneal Dialysis Musculoskeltal Medical History: Reports Hx Arthritis, Reports Hx Musculoskeletal Deformity, Reports Hx Musculoskeletal Trauma Psychiatric Medical History: Reports: Hx Anxiety, Hx Post Traumatic Stress Disorder Traumatic Medical History: Reports: Hx Fractures - Left ankle Past Surgical History: Reports: Hx Oral Surgery - wisdom, Hx Orthopedic Surgery - left ankle, Hx Tonsillectomy. Denies: Hx Abdominal Surgery - Immunizations Immunizations up to date: Yes Hx Diphtheria, Pertussis, Tetanus Vaccination: Yes Physical Exam - Vital signs Vitals: Temp Pulse Resp BP Pulse Ox 98.5 F 89 16 125/89 H 97 11/07/19 10:45 11/07/19 10:45 11/07/19 10:45 11/07/19 10:45 11/07/19 10:45 - Cardiovascular Rhythm: Regular Heart sounds: Normal auscultation, S1 appreciated, S2 appreciated Course - Re-evaluation Re-evalutation: 09/25/20 10:50 Patient has generalized shakes in triage. Patient is alert and oriented. Will obtain basic labs, EKG as well as urinalysis as patient reports she was told there was a loss of consciousness. I have greeted and performed a rapid initial assessment of this patient. A comprehensive ED assessment and evaluation of the patient, analysis of test results and completion of the medical decision making process will be conducted by additional ED providers. - Vital Signs Vital signs: Temp Pulse Resp BP Pulse Ox 98.5 F 89 16 125/89 H 97 11/07/19 10:45 11/07/19 10:45 11/07/19 10:45 11/07/19 10:45 11/07/19 10:45 Doctor's Discharge - Discharge Referrals: AKILA COURTNEY PA-C [Primary Care Provider] - Follow up as needed
[2019-11-07 11:35] LABS: APPEARANCE,URINE SLIGHTLY-CLOUDY; BILIRUBIN,URINE NEGATIVE (NEGATIVE); COLOR,URINE YELLOW; GLUCOSE, URINE NEGATIVE (NEGATIVE); KETONES,URINE NEGATIVE (NEGATIVE); LEUKOCYTE ESTERASE,URINE TRACE (NEGATIVE); NITRITE,URINE NEGATIVE (NEGATIVE); PROTEIN,URINE NEGATIVE (NEGATIVE); URINE SPECIFIC GRAVITY 1.025; UROBILINOGEN,URINE NEGATIVE mg/dL (<2.0)
[2019-11-07 11:44] LABS: ABSOLUTE EOSINOPHILS # (AUTO) 0.2 10^3/uL (0.0-0.6); ABSOLUTE LYMPHOCYTES (AUTO) 2.1 10^3/uL (0.5-4.7); ABSOLUTE MONOCYTES (AUTO) 0.3 10^3/uL (0.1-1.4); ABSOLUTE NEUT (AUTO) 4.2 10^3/uL (1.7-8.2); BASOPHILS % (AUTO) 0.3 % (0-2); EOSINOPHILS % (AUTO) 3.1 % (0-6); HEMATOCRIT 41.1 % (36.0-47.0); LYMPHOCYTES % (AUTO) 30.6 % (13-45); MEAN CORPUSCULAR HEMOGLOBIN 27.6 pg (27.0-33.4); MEAN CORPUSCULAR HGB CONC 34.1 g/dL (32.0-36.0); MEAN CORPUSCULAR VOLUME 81 fl (80-97); MONOCYTES % (AUTO) 4.5 % (3-13); PLATELET COUNT 350 10^3/uL (150-450); RED BLOOD COUNT 5.07 10^6/uL (3.72-5.28); RED CELL DISTRIBUTION WIDTH 13.9 % (11.5-14.0); SEGMENTED NEUTROPHILS % (AUTO) 61.5 % (42-78); TOTAL CELLS COUNTED % (AUTO) 100 %; WHITE BLOOD COUNT 6.9 10^3/uL (4.0-10.5)
[2019-11-07 11:56] LABS: ALBUMIN 4.2 g/dL (3.5-5.0); ALKALINE PHOSPHATASE 95 U/L (38-126); ANION GAP 10 (5-19); ASPARTATE AMINO TRANSFERASE 25 U/L (14-36); BILIRUBIN,DIRECT 0.2 mg/dL (0.0-0.4); BILIRUBIN,TOTAL 0.6 mg/dL (0.2-1.3); BLOOD UREA NITROGEN 14 mg/dL (7-20); CALCIUM 9.7 mg/dL (8.4-10.2); CARBON DIOXIDE 24 mmol/L (22-30); CHLORIDE 104 mmol/L (98-107); GLUCOSE 109 mg/dL (75-110); POTASSIUM 4.7 mmol/L (3.6-5.0); TOTAL PROTEIN 7.1 g/dL (6.3-8.2)
[2019-11-07 13:51] VITALS: BP 126/75
--- NOTE | 2019-11-10 06:07 | ER Document Report ---
Entered by GERALD FRANKEL SCRIBE 11/07/19 1338 Acting as scribe for:LAZARA CHAVEZ MD ED General - General Chief Complaint: Anxiety Stated Complaint: ANXIETY Time Seen by Provider: 11/07/19 10:44 Primary Care Provider: AKILA COURTNEY PA-C [Primary Care Provider] - Follow up as needed Mode of Arrival: Ambulatory Information source: Patient Notes: This 29 year old female patient presents to the emergency department today with complaints of an anxiety attack. 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 Patient mentions that after getting the nitrous oxide her heart began to race, and her head was held down by the mask causing her to "have a PTSD flare". Patient is no longer anxious and has no complaints. TRAVEL OUTSIDE OF THE [place] IN LAST 30 DAYS: No - Related Data Allergies/Adverse Reactions: iodine Allergy (Verified 11/07/19 10:48) shellfish derived Allergy (Verified 11/07/19 10:48) Past Medical History - General Information source: Patient - Social History Smoking Status: Never Smoker Cigarette use (# per day): No Frequency of alcohol use: None Drug Abuse: None Lives with: Family Family History: Reviewed & Not Pertinent Pulmonary Medical History: Reports: Hx Asthma Musculoskeletal Medical History: Reports Hx Arthritis, Reports Hx Musculoskeletal Deformity, Reports Hx Musculoskeletal Trauma Psychiatric Medical History: Reports: Hx Anxiety, Hx Post Traumatic Stress Disorder Traumatic Medical History: Reports: Hx Fractures - Left ankle Past Surgical History: Reports: Hx Oral Surgery - wisdom, Hx Orthopedic Surgery - left ankle, Hx Tonsillectomy - Immunizations Immunizations up to date: Yes Hx Diphtheria, Pertussis, Tetanus Vaccination: Yes Review of Systems - Review of Systems Constitutional: No symptoms reported EENT: No symptoms reported Cardiovascular: No symptoms reported Respiratory: No symptoms reported Gastrointestinal: No symptoms reported Genitourinary: No symptoms reported Female Genitourinary: No symptoms reported Musculoskeletal: No symptoms reported Skin: No symptoms reported Hematologic/Lymphatic: No symptoms reported Neurological/Psychological: See HPI, Anxiety -: Yes All other systems reviewed and negative Physical Exam - Vital signs Vitals: Temp Pulse Resp BP Pulse Ox 98.5 F 89 16 125/89 H 97 11/07/19 10:45 11/07/19 10:45 11/07/19 10:45 11/07/19 10:45 11/07/19 10:45 - Notes Notes: Physical Exam: General: Alert, appears well. HEENT: Normocephalic. Atraumatic. PERRL. Extraocular movements intact. Oropharynx clear. Neck: Supple. Non-tender. Respiratory: No respiratory distress. Clear and equal breath sounds bilaterally. Cardiovascular: Regular rate and rhythm. Abdominal: Normal Inspection. Non-tender. No distension. Normal Bowel Sounds. Back: No gross abnormalities. Extremities: Moves all four extremities. Upper extremities: Right wrist in a post-op splint keeping the fourth and fifth digits in extension. Lower extremities: Normal inspection. No edema. Normal ROM. Neurological: Normal cognition. AAOx4. Normal speech. Psychological: Normal affect. Normal Mood. Skin: Warm. Dry. Normal color. Course - Vital Signs Vital signs: Temp Pulse Resp BP Pulse Ox 97.9 F 76 18 126/75 H 100 11/07/19 13:53 11/07/19 13:53 11/07/19 13:53 11/07/19 13:53 11/07/19 13:53 - Laboratory Result Diagrams: 11/07/19 11:04 11/07/19 11:04 Laboratory results interpreted by me: 11/07/19 11:04 Ur Leukocyte Esterase TRACE H Discharge - Discharge Clinical Impression: Generalized anxiety disorder with panic attacks Condition: Stable Disposition: HOME, SELF-CARE Instructions: Anxiety ([facility]) Additional Instructions: Your history suggests that you did have a panic attack today and it is now resolved. You should go home and rest today. Follow-up with your primary care provider if not improving. RETURN TO THE EMERGENCY ROOM IF ANY NEW OR WORSENING SYMPTOMS. Referrals: AKILA COURTNEY PA-C [Primary Care Provider] - Follow up as needed I personally performed the services described in the documentation, reviewed and edited the documentation which was dictated to the scribe in my presence, and it accurately records my words and actions.
== END 2019-11-07 13:53 | disposition home or self-care (01) ==
LOC: ER 10:35
DX: F41.0 Panic disorder [episodic paroxysmal anxiety] (principal)
CPT/HCPCS: 36415; 80053; 81001; 81025; 85025; 99282

== ENCOUNTER 2019-11-07 20:14 | Emergency (ER) | payer MEDICAID ==
[2019-11-07 20:49] VITALS: BP 123/76
--- NOTE | 2019-11-07 23:11 | ER Document Report ---
HPI - HPI Time Seen by Provider: 11/07/19 22:55 Notes: Otherwise healthy 29-year-old female presented emergency department concern for damage to her splint. Patient has a splint to the right hand. She states on she had exploratory surgery for a tendon injury. She was placed in a volar splint. She states earlier today she got the splint wet. Her follow-up is not until Sunday. She denies any other complaints. - ROS Systems Reviewed and Negative: Yes All other systems reviewed and negative - REPRODUCTIVE Reproductive: DENIES: : Past Medical History - General Information source: Patient - Social History Smoking Status: Never Smoker Frequency of alcohol use: None Drug Abuse: None Family History: Reviewed & Not Pertinent Pulmonary Medical History: Reports: Hx Asthma Neurological Medical History: Denies: Hx Seizures Endocrine Medical History: Denies: Hx Diabetes Mellitus Type 1, Hx Diabetes Mellitus Type 2 Renal/ Medical History: Denies: Hx Peritoneal Dialysis Musculoskeletal Medical History: Reports Hx Arthritis, Reports Hx Musculoskeletal Deformity, Reports Hx Musculoskeletal Trauma Psychiatric Medical History: Reports: Hx Anxiety, Hx Post Traumatic Stress Disorder Traumatic Medical History: Reports: Hx Fractures - Left ankle Past Surgical History: Reports: Hx Oral Surgery - wisdom, Hx Orthopedic Surgery - left ankle, Hx Tonsillectomy. Denies: Hx Abdominal Surgery - Immunizations Immunizations up to date: Yes Hx Diphtheria, Pertussis, Tetanus Vaccination: Yes Vertical Provider Document - CONSTITUTIONAL Notes: PHYSICAL EXAMINATION: GENERAL: Well-appearing, well-nourished and in no acute distress. HEAD: Atraumatic, normocephalic. EYES: Pupils equal round extraocular movements intact, conjunctiva are normal. ENT: Nares patent NECK: Normal range of motion LUNGS: No respiratory distress Musculoskeletal: Normal range of motion NEUROLOGICAL: Normal speech, normal gait. PSYCH: Normal mood, normal affect. SKIN: Incision site noted to right fourth digit, appears to be healing well. No abnormalities noted. - INFECTION CONTROL TRAVEL OUTSIDE OF THE [place] IN LAST 30 DAYS: No Course - Re-evaluation Re-evalutation: Patient's splint needed changing of the padding. The Ortho-Glass is still intact. Patient will be discharged at this time. - Vital Signs Vital signs: Temp Pulse Resp BP Pulse Ox 98.4 F 107 H 16 123/76 98 11/07/19 20:44 11/07/19 20:44 11/07/19 20:44 11/07/19 20:44 11/07/19 20:44 Discharge - Discharge Clinical Impression: Encounter for splint reinforcement Condition: Stable Disposition: HOME, SELF-CARE Additional Instructions: Please keep the follow-up appointment you have with your orthopedic surgeon for Sunday. Return to the emergency department any new or worsening complaints. Referrals: AKILA COURTNEY PA-C [Primary Care Provider] - Follow up as needed
== END 2019-11-07 23:38 | disposition home or self-care (01) ==
LOC: ER 20:14
DX: Z46.4 Encounter for fitting and adjustment of orthodontic device (principal)
CPT/HCPCS: 99281